=== PATIENT | female | born 1955 | race African-American/Black ===

== ENCOUNTER 2016-07-08 17:10 | Emergency (ER) | payer OTHER ==
[2016-07-08] MEDS ORDERED: predniSONE 20 MG TAB ONE (17:36)
== END 2016-07-08 17:39 | disposition home or self-care (01) ==
LOC: NAV ERS 17:10
DX: J30.9 Allergic rhinitis, unspecified (principal); K21.9 Gastro-esophageal reflux disease without esophagitis; I10 Essential (primary) hypertension; Z79.899 Other long term (current) drug therapy
CPT/HCPCS: 99283; J7506

== ENCOUNTER 2017-01-12 12:44 | Outpatient (CLI) | payer OTHER ==
--- NOTE | 2017-01-12 14:36 | RAD ---
LEFT KNEE 2 VIEWS: HISTORY: Knee pain. FINDINGS/IMPRESSION: There are moderate arthritic changes of the knee with tricompartment degenerative changes most marked in the medial compartment of the knee. There are some moderate osteoarthritic changes of the knee. POS: [facility]
== END 2017-01-12 12:45 | disposition home or self-care (01) ==
LOC: NAV RAD 12:44
PROVIDERS: ATTEND Family Medicine
DX: M25.561 Pain in right knee (principal); M17.11 Unilateral primary osteoarthritis, right knee

== ENCOUNTER 2018-04-17 14:26 | Outpatient (CLI) | payer OTHER ==
--- NOTE | 2018-04-17 16:17 | ULT ---
BILATERAL LOWER EXTREMITY VENOUS DUPLEX ULTRASOUND INCLUDING COLOR AND SPECTRAL DOPPLER IMAGIN04/17/18 HISTORY: Bilateral lower extremity edema for five months. Exam performed from groin to ankle including visualized greater saphenous, common femoral, superficia l femoral, profunda femoral, popliteal, trifurcation, and posterior tibial vein regions. Phasic flow is noted at all levels with normal compressibility and normal augmentation. No evidence for intralumi nal thrombus. IMPRESSION: No evidence for deep venous thrombosis. POS: [facility]
== END 2018-04-17 14:27 | disposition home or self-care (01) ==
LOC: NAV ULT 14:26
PROVIDERS: ATTEND Family Medicine
DX: R60.0 Localized edema (principal)
CPT/HCPCS: 93970

== ENCOUNTER 2018-06-17 18:49 | Emergency (ER) | payer OTHER ==
[2018-06-17] MEDS ORDERED: Lidocaine 1% (PF) 30 ML VIAL ONE (19:09)
--- NOTE | 2018-06-17 19:44 | CT ---
CT BRAIN: 06/17/18 HISTORY: Fall. Altered mental status. Noncontrast enhanced CT images of the brain obtained. Brain and bone windows obtained. CT images of the brain demonstrate the brain to be unremarkable. No evidence of intracranial masses, hemorrhages, strokes or contusions seen. Ventricles are of normal size. IMPRESSION: Unremarkable CT brain. POS: [facility]
--- NOTE | 2018-06-17 19:52 | RAD ---
THREE VIEWS RIGHT HAND: 06/17/18 HISTORY: Right hand injury and fall. AP, lateral and oblique views right hand obtained. Three views right hand demonstrates no evidence of right hand fractures, subluxations or bony lesions. IMPRESSION: Unremarkable three views right hand. POS: [facility]
--- NOTE | 2018-06-17 19:58 | CT ---
CT FACIAL BONES: 06/17/18 HISTORY: Fall, pain. Axial images are obtained with coronal and sagittal reconstructions. CT images facial bones demonstrate no evidence of fractures seen in the nasal bones. The sinuses are well aerated. Mandible and maxilla are intact. IMPRESSION: No evidence of facial bones fractures. POS: [facility]
--- NOTE | 2018-06-17 19:59 | CT ---
CT CERVICAL SPINE: 06/17/18 HISTORY: Fall. Pain. Right hand pain. Noncontrast enhanced CT images cervical spine obtained. The cervical spine is unremarkable. No evide nce of acute cervical spine fractures or bony lesions seen. IMPRESSION: No evidence of acute cervical spine fractures. POS: [facility]
[2018-06-17] MEDS ORDERED: Bacitracin Zinc 1 Packet ONE (20:18)
[2018-06-17] MEDS ORDERED: Adacel (T-DAP) 0.5 ML SYRINGE ONE (20:24)
[2018-06-17] MEDS ORDERED: traMADol HCl 50 MG TAB ONE (20:24)
== END 2018-06-17 20:50 | disposition home or self-care (01) ==
LOC: NAV ERS 18:49
DX: S61.411A Laceration without foreign body of right hand, initial encounter (principal); S09.93XA Unspecified injury of face, initial encounter; K21.9 Gastro-esophageal reflux disease without esophagitis; I10 Essential (primary) hypertension; Z79.891 Long term (current) use of opiate analgesic; Z79.899 Other long term (current) drug therapy; W01.0XXA Fall on same level from slipping, tripping and stumbling without subsequent striking against object, initial encounter
CPT/HCPCS: 12001; 70450; 70486; 72125; 90471; 90715; J2001

== ENCOUNTER 2018-09-12 15:42 | Emergency (ER) | payer OTHER | END 2018-09-12 16:45 | disposition home or self-care (01) | LOC: NAV ERS 15:42 | DX: M79.672 Pain in left foot (principal); M79.671 Pain in right foot; K21.9 Gastro-esophageal reflux disease without esophagitis; I10 Essential (primary) hypertension; Z79.891 Long term (current) use of opiate analgesic; Z79.899 Other long term (current) drug therapy | CPT/HCPCS: 99281 ==

== ENCOUNTER 2018-10-13 20:02 | Emergency (ER) | payer OTHER ==
[2018-10-13 20:44] LABS: #Eosinphils 0.1 thou/uL (0.0-0.7); #Lymphocytes 0.7 thou/uL (1.20-3.40); #Monocytes 0.3 thou/uL (0.11-0.59); #Neutrophils 4.8 thou/uL (1.40-6.50); %Basophils 0.5 % (0.0-1.0); %Eosinophils 1.3 % (0.0-10.0); %Lymphocytes 12.2 % (21.0-51.0); %Monocytes 5.6 % (0.0-10.0); %Neutrophils 80.5 % (42.0-75.0); Hemoglobin 12.2 g/dL (12.0-16.0); Mean Corpuscular HGB CONC 30.7 g/dL (32.0-36.0); Mean Corpuscular Volume 88.1 fL (78.0-98.0); Mean Platelet Volume 6.2 fL (7.4-10.4); Platelet Count 208 thou/uL (130-400); RBC Distribution Width 12.1 % (11.5-14.5); Red Blood Cell (RBC) Count 4.49 mill/uL (4.20-5.40)
[2018-10-13 20:59] LABS: ALT (SGPT) 30 U/L (8-55); AST (SGOT) 42 U/L (5-34); Albumin 4.3 g/dL (3.4-4.8); Alkaline Phosphatase 92 U/L (40-150); Anion Gap 18 mmol/L (10-20); BUN (Urea Nitrogen) 14 mg/dL (9.8-20.1); Bilirubin, Total 1.2 mg/dL (0.2-1.2); CK (CPK) 1293 U/L (29-168); Calc. Creatinine Clearance 0 mL/min (70-130); Carbon Dioxide 21 mmol/L (23-31); Chloride 105 mmol/L (98-107); Estimated GFR-MDRD 89; Globulin 2.9 g/dL (2.4-3.5); Glucose 99 mg/dL (80-115); Potassium 3.4 mmol/L (3.5-5.1); Protein, Total 7.2 g/dL (6.0-8.3); Sodium 141 mmol/L (136-145)
--- NOTE | 2018-10-13 21:20 | CT ---
CT BRAIN WITHOUT CONTRAST: 10/13/18 HISTORY: Headache. COMPARISON: Comparison made with exam of 06/17/18. No evidence of acute infarct, hemorrhage, midline shift or abnormal extra-axial fluid collections are seen. The ventricular size is normal and the basilar cisterns patent. The bony calvarium is intact. The visualized paranasal sinuses and mastoid air cells are well aerated. IMPRESSION: No CT evidence of acute intracranial process. POS: [facility]
--- NOTE | 2018-10-13 21:25 | RAD ---
PORTABLE CHEST ONE VIEW: 10/13/18 at 8:33 p.m. HISTORY: Feeling shaky, headache. FINDINGS: Comparison is made with exam of 02/25/16. The heart size is borderline. The lungs are well expanded without focal areas of consolidation, pneu mothoraces, or pleural effusions. There is no evidence of ranjeet pulmonary edema. There are postop kathleen nges in the spine. IMPRESSION: No acute process. POS: [facility]
[2018-10-13 21:44] LABS: Bilirubin Negative (Negative); Blood, Urine Moderate (Negative); Clarity Clear (Clear); Glucose, Urine (Dipstick) Negative (Negative); Leukocyte Negative (Negative); Nitrite Negative (Negative); Protein, Urine (Dipstick) Negative (Neg-Trace); Urobilinogen 0.2 mg/dL (Less than 2)
[2018-10-13 21:53] LABS: Bacteria/HPF None Seen HPF (None Seen); Squamous Epithelial 0-3 HPF (0-3); WBC/HPF 0-3 HPF (0-3)
== END 2018-10-13 22:43 | disposition home or self-care (01) ==
LOC: NAV ERS 20:02
DX: R53.1 Weakness (principal); M25.572 Pain in left ankle and joints of left foot; M25.571 Pain in right ankle and joints of right foot; M79.89 Other specified soft tissue disorders; M54.5 Low back pain; G89.29 Other chronic pain; I10 Essential (primary) hypertension; K21.9 Gastro-esophageal reflux disease without esophagitis; Z79.899 Other long term (current) drug therapy; W18.30XA Fall on same level, unspecified, initial encounter
CPT/HCPCS: 36416; 51701; 70450; 71045; 80053; 81003; 81015; 82550; 83735; 85025

== ENCOUNTER 2019-04-27 14:49 | Emergency (ER) | payer OTHER ==
[2019-04-27 16:02] LABS: #Eosinphils 0.1 thou/uL (0.0-0.7); #Lymphocytes 0.9 thou/uL (1.20-3.40); #Monocytes 0.3 thou/uL (0.11-0.59); #Neutrophils 3.2 thou/uL (1.40-6.50); %Basophils 0.4 % (0.0-1.0); %Eosinophils 1.5 % (0.0-10.0); %Lymphocytes 20.4 % (21.0-51.0); %Monocytes 7.4 % (0.0-10.0); %Neutrophils 70.3 % (42.0-75.0); Mean Corpuscular HGB CONC 31.2 g/dL (32.0-36.0); Mean Corpuscular Hemoglobin 28.2 pg (27.0-31.0); Mean Corpuscular Volume 90.3 fL (78.0-98.0); Mean Platelet Volume 6.8 fL (7.4-10.4); Platelet Count 210 thou/uL (130-400); RBC Distribution Width 12.7 % (11.5-14.5); White Blood Cell (WBC) Count 4.5 thou/uL (4.8-10.8)
[2019-04-27 16:23] LABS: ALT (SGPT) 10 U/L (8-55); AST (SGOT) 26 U/L (5-34); Albumin 4.4 g/dL (3.4-4.8); Alkaline Phosphatase 89 U/L (40-110); Anion Gap 17 mmol/L (10-20); BUN (Urea Nitrogen) 15 mg/dL (9.8-20.1); Bilirubin, Total 0.5 mg/dL (0.2-1.2); Calc. Creatinine Clearance 0 mL/min (70-130); Calcium 9.3 mg/dL (7.8-10.44); Carbon Dioxide 23 mmol/L (23-31); Chloride 101 mmol/L (98-107); Estimated GFR-MDRD 76; Glucose 91 mg/dL (80-115); Magnesium 1.9 mg/dL (1.6-2.6); Potassium 3.4 mmol/L (3.5-5.1); Protein, Total 7.4 g/dL (6.0-8.3); Sodium 138 mmol/L (136-145)
--- NOTE | 2019-04-27 16:40 | RAD ---
EXAM: CHEST ONE VIEW HISTORY: Cough and weakness. COMPARISON: 10/13/2018 FINDINGS: The cardiac silhouette and pulmonary vasculature is within normal limits. The lungs are clear. Postsu rgical changes lower thoracic spine are partially imaged. Vascular calcification are seen in the thoracic aorta. Chest is stable compared to prior exam. IMPRESSION: No acute cardiopulmonary process.
[2019-04-27 17:39] LABS: Bilirubin Negative (Negative); Blood, Urine Moderate (Negative); Clarity SL HAZY (Clear); Glucose, Urine (Dipstick) Negative (Negative); Leukocyte Moderate (Negative); Nitrite Negative (Negative); Protein, Urine (Dipstick) Negative (Neg-Trace); Squamous Epithelial 0-3 HPF (0-3); Urobilinogen 0.2 mg/dL (Less than 2)
[2019-04-27 17:40] LABS: Bacteria/HPF Rare-Few HPF (None Seen)
[2019-04-27] MEDS ORDERED: Potassium Chloride 20 MEQ TAB ONE (18:13)
[2019-04-27] MEDS ORDERED: Cephalexin 250 MG CAP ONE (18:13)
== END 2019-04-27 18:56 | disposition home or self-care (01) ==
LOC: NAV ERS 14:49
DX: N39.0 Urinary tract infection, site not specified (principal); E87.6 Hypokalemia; R11.0 Nausea; K21.9 Gastro-esophageal reflux disease without esophagitis; I10 Essential (primary) hypertension; Z79.899 Other long term (current) drug therapy
CPT/HCPCS: 71045; 80053; 81003; 81015; 83735; 83880; 84484; 85025; 87086; 93005; 94760

== ENCOUNTER 2020-04-16 10:36 | Emergency (ER) | payer MEDICARE, OTHER ==
[2020-04-16] MEDS ORDERED: Hydrochlorothiazide 25 MG TAB ONE (11:22)
[2020-04-16] MEDS ORDERED: Losartan Potassium 50 MG TAB ONE (11:22)
[2020-04-16 11:45] LABS: #Eosinphils 0.1 thou/uL (0.0-0.7); #Monocytes 0.4 thou/uL (0.11-0.59); #Neutrophils 3.7 thou/uL (1.40-6.50); %Basophils 0.8 % (0.0-1.0); %Lymphocytes 18.7 % (21.0-51.0); %Monocytes 7.4 % (0.0-10.0); %Neutrophils 72.1 % (42.0-75.0); Hemoglobin 12.1 g/dL (12.0-16.0); Mean Corpuscular HGB CONC 32.2 g/dL (32.0-36.0); Mean Corpuscular Hemoglobin 29.1 pg (27.0-31.0); Mean Corpuscular Volume 90.4 fL (78.0-98.0); Platelet Count 224 thou/uL (130-400); RBC Distribution Width 12.7 % (11.5-14.5); Red Blood Cell (RBC) Count 4.14 mill/uL (4.20-5.40); White Blood Cell (WBC) Count 5.2 thou/uL (4.8-10.8)
[2020-04-16] MEDS ORDERED: traMADol HCl 50 MG TAB ONE (11:47)
[2020-04-16 11:58] LABS: ALT (SGPT) 17 U/L (8-55); AST (SGOT) 21 U/L (5-34); Albumin 4.2 g/dL (3.4-4.8); Alkaline Phosphatase 70 U/L (40-110); Anion Gap 16 mmol/L (10-20); BUN (Urea Nitrogen) 11 mg/dL (9.8-20.1); Bilirubin, Total 0.6 mg/dL (0.2-1.2); Calc. Creatinine Clearance 0 mL/min (70-130); Calcium 9.7 mg/dL (7.8-10.44); Carbon Dioxide 23 mmol/L (23-31); Globulin 2.8 g/dL (2.4-3.5); Glucose 94 mg/dL (80-115); Potassium 4.4 mmol/L (3.5-5.1); Sodium 142 mmol/L (136-145)
[2020-04-16 12:01] LABS: Chloride 107 mmol/L (98-107)
[2020-04-16 13:25] LABS: Bilirubin Negative (Negative); Blood, Urine Moderate (Negative); Clarity Clear (Clear); Glucose, Urine (Dipstick) Negative (Negative); Ketone, Urine Negative (Negative); Leukocyte Negative (Negative); Nitrite Negative (Negative); Protein, Urine (Dipstick) Negative (Neg-Trace); Specific Gravity, Urine 1.025 (1.005-1.030); Urobilinogen 0.2 mg/dL (Less than 2)
[2020-04-16 13:37] LABS: Squamous Epithelial 0-3 HPF (0-3); WBC/HPF 0-3 HPF (0-3)
== END 2020-04-16 16:50 | disposition short-term general hospital (02) ==
LOC: NAV ERS 10:36
DX: M79.605 Pain in left leg (principal); R79.89 Other specified abnormal findings of blood chemistry; R26.2 Difficulty in walking, not elsewhere classified; K21.9 Gastro-esophageal reflux disease without esophagitis; I10 Essential (primary) hypertension; Z79.899 Other long term (current) drug therapy
CPT/HCPCS: 51701; 80053; 81003; 81015; 85025; 85379

== ENCOUNTER 2020-05-22 14:56 | Emergency (ER) | payer MEDICARE, OTHER ==
[2020-05-22] MEDS ORDERED: Furosemide 40 MG/4 ML VIAL ONE (15:43)
[2020-05-22] MEDS ORDERED: Furosemide 40 MG TAB ONE (16:06)
== END 2020-05-22 16:45 | disposition home or self-care (01) ==
LOC: NAV ERS 14:56
DX: M79.2 Neuralgia and neuritis, unspecified (principal); R60.0 Localized edema; K21.9 Gastro-esophageal reflux disease without esophagitis; I10 Essential (primary) hypertension; Z79.899 Other long term (current) drug therapy
CPT/HCPCS: 99283; J1940

== ENCOUNTER 2020-06-20 19:49 | Inpatient (IN) | payer MEDICARE, OTHER ==
[2020-06-20 20:50] LABS: Bilirubin Negative (Negative); Blood, Urine Small (Negative); Glucose, Urine (Dipstick) Negative (Negative); Ketone, Urine Negative (Negative); Leukocyte Moderate (Negative); Nitrite Negative (Negative); Protein, Urine (Dipstick) Negative (Neg-Trace); Urobilinogen 0.2 mg/dL (Less than 2)
[2020-06-20 20:52] LABS: #Eosinphils 0.1 thou/uL (0.0-0.7); #Monocytes 0.4 thou/uL (0.11-0.59); %Basophils 0.3 % (0.0-1.0); %Eosinophils 1.9 % (0.0-10.0); %Lymphocytes 17.9 % (21.0-51.0); %Monocytes 6.7 % (0.0-10.0); %Neutrophils 73.2 % (42.0-75.0); Hemoglobin 12.1 g/dL (12.0-16.0); Mean Corpuscular HGB CONC 29.1 g/dL (32.0-36.0); Mean Corpuscular Hemoglobin 27.7 pg (27.0-31.0); Mean Corpuscular Volume 95.5 fL (78.0-98.0); Mean Platelet Volume 7.3 fL (7.4-10.4); Platelet Count 212 thou/uL (130-400); RBC Distribution Width 12.9 % (11.5-14.5); Red Blood Cell (RBC) Count 4.35 mill/uL (4.20-5.40); White Blood Cell (WBC) Count 5.5 thou/uL (4.8-10.8)
[2020-06-20 20:53] LABS: Clarity SL HAZY (Clear)
[2020-06-20 21:02] LABS: Anion Gap 17 mmol/L (10-20); BUN (Urea Nitrogen) 18 mg/dL (9.8-20.1); Calc. Creatinine Clearance 0 mL/min (70-130); Calcium 9.3 mg/dL (7.8-10.44); Carbon Dioxide 21 mmol/L (23-31); Chloride 105 mmol/L (98-107); Glucose 91 mg/dL (80-115); Potassium 3.9 mmol/L (3.5-5.1); Sodium 139 mmol/L (136-145)
[2020-06-20 21:02] LABS: RBC/HPF 0-3 HPF (0-3); Squamous Epithelial 0-3 HPF (0-3); Trichomonas/HPF 2+ HPF (None Seen); WBC/HPF Greater Than 50 HPF (0-3)
[2020-06-20] MEDS ORDERED: Sodium Chloride 0.9% 100 ML ONE (22:20)
[2020-06-20] MEDS ORDERED: cefTRIAXone\\ROCEPHIN 1 GM VIAL ONE (22:20)
[2020-06-20] MEDS ORDERED: metroNIDAZOLE 500 MG TAB ONE (22:20)
[2020-06-20] MEDS ORDERED: traMADol HCl 50 MG TAB ONE (22:35)
[2020-06-20] MEDS ORDERED: traMADol HCl 50 MG TAB PO PRN (23:29)
[2020-06-20] MEDS ORDERED: Methocarbamol 500 MG TAB PO PRN (23:30)
[2020-06-21 05:38] LABS: #Eosinphils 0.1 thou/uL (0.0-0.7); #Lymphocytes 1.2 thou/uL (1.20-3.40); #Monocytes 0.4 thou/uL (0.11-0.59); #Neutrophils 3.3 thou/uL (1.40-6.50); %Basophils 0.3 % (0.0-1.0); %Eosinophils 2.4 % (0.0-10.0); %Lymphocytes 23.5 % (21.0-51.0); %Monocytes 7.5 % (0.0-10.0); %Neutrophils 66.2 % (42.0-75.0); Hemoglobin 11.1 g/dL (12.0-16.0); Mean Corpuscular Hemoglobin 27.1 pg (27.0-31.0); Mean Corpuscular Volume 93.7 fL (78.0-98.0); Mean Platelet Volume 7.3 fL (7.4-10.4); Platelet Count 232 thou/uL (130-400); RBC Distribution Width 12.7 % (11.5-14.5); Red Blood Cell (RBC) Count 4.09 mill/uL (4.20-5.40)
[2020-06-21 05:45] LABS: Anion Gap 12 mmol/L (10-20); BUN (Urea Nitrogen) 14 mg/dL (9.8-20.1); Calc. Creatinine Clearance 99 mL/min (70-130); Calcium 8.7 mg/dL (7.8-10.44); Carbon Dioxide 24 mmol/L (23-31); Chloride 106 mmol/L (98-107); Glucose 94 mg/dL (80-115); Potassium 3.4 mmol/L (3.5-5.1); Sodium 139 mmol/L (136-145)
[2020-06-21 06:24] LABS: RBC Morphology Normal
[2020-06-21] MEDS ORDERED: metroNIDAZOLE 500 MG TAB PO SCH (09:00)
[2020-06-21] MEDS ORDERED: Potassium Chloride 20 MEQ TAB PO SCH (09:15)
[2020-06-21] MEDS ORDERED: Carbidopa/Levodopa 10-100 mg Tablet PO SCH (09:30)
[2020-06-21] MEDS ORDERED: Nitrofurantoin Monohyd/M-Cryst 100 MG CAP PO SCH (09:30)
[2020-06-21] MEDS: metroNIDAZOLE 500 MG TAB PO SCH ×2 (09:38→21:05)
[2020-06-21 21:01] LABS: SARS-CoV-2 PCR by NAA Not Detected (NotDetected)
[2020-06-21] MEDS: Carbidopa/Levodopa 10-100 mg Tablet PO SCH (21:05)
[2020-06-21] MEDS: Nitrofurantoin Monohyd/M-Cryst 100 MG CAP PO SCH (21:06)
[2020-06-21] MEDS ORDERED: cefTRIAXone\\ROCEPHIN 1 GM in Sodium Chloride 0.9% 100 ML IVPB SCH (23:00)
[2020-06-22 00:07] VITALS: BMI 34.6
[2020-06-22 05:50] LABS: #Eosinphils 0.2 thou/uL (0.0-0.7); #Monocytes 0.3 thou/uL (0.11-0.59); #Neutrophils 2.9 thou/uL (1.40-6.50); %Basophils 0.5 % (0.0-1.0); %Eosinophils 3.9 % (0.0-10.0); %Lymphocytes 21.9 % (21.0-51.0); %Monocytes 7.6 % (0.0-10.0); %Neutrophils 66.2 % (42.0-75.0); Hemoglobin 11.9 g/dL (12.0-16.0); Mean Corpuscular HGB CONC 28.8 g/dL (32.0-36.0); Mean Corpuscular Volume 93.9 fL (78.0-98.0); Mean Platelet Volume 7.7 fL (7.4-10.4); Platelet Count 223 thou/uL (130-400); RBC Distribution Width 12.7 % (11.5-14.5); White Blood Cell (WBC) Count 4.4 thou/uL (4.8-10.8)
[2020-06-22 06:03] LABS: Anion Gap 13 mmol/L (10-20); BUN (Urea Nitrogen) 11 mg/dL (9.8-20.1); Calc. Creatinine Clearance 102 mL/min (70-130); Calcium 9.2 mg/dL (7.8-10.44); Carbon Dioxide 23 mmol/L (23-31); Chloride 107 mmol/L (98-107); Glucose 92 mg/dL (80-115); Potassium 3.7 mmol/L (3.5-5.1); Sodium 139 mmol/L (136-145)
[2020-06-22] MEDS: Carbidopa/Levodopa 10-100 mg Tablet PO SCH ×2 (09:18→21:01)
[2020-06-22] MEDS: Nitrofurantoin Monohyd/M-Cryst 100 MG CAP PO SCH ×2 (09:18→21:00)
[2020-06-22] MEDS: Methocarbamol 500 MG TAB PO PRN ×3 (09:26→20:59)
[2020-06-22] MEDS: traMADol HCl 50 MG TAB PO PRN (13:40)
[2020-06-23] MEDS: traMADol HCl 50 MG TAB PO PRN ×2 (01:17→16:10)
[2020-06-23] MEDS: Carbidopa/Levodopa 10-100 mg Tablet PO SCH ×2 (09:34→21:16)
[2020-06-23] MEDS: Nitrofurantoin Monohyd/M-Cryst 100 MG CAP PO SCH ×2 (09:34→21:16)
[2020-06-23] MEDS: Methocarbamol 500 MG TAB PO PRN (21:16)
[2020-06-24] MEDS: Nitrofurantoin Monohyd/M-Cryst 100 MG CAP PO SCH ×2 (08:38→21:16)
[2020-06-24] MEDS: Carbidopa/Levodopa 10-100 mg Tablet PO SCH ×2 (08:39→21:16)
[2020-06-24] MEDS: Methocarbamol 500 MG TAB PO PRN ×2 (10:20→21:16)
[2020-06-25] MEDS: Carbidopa/Levodopa 10-100 mg Tablet PO SCH (09:31)
[2020-06-25] MEDS: Nitrofurantoin Monohyd/M-Cryst 100 MG CAP PO SCH (09:31)
[2020-06-25] MEDS: traMADol HCl 50 MG TAB PO PRN (09:34)
[2020-06-25] MEDS ORDERED: Milk Of Magnesia 30 ML UDCUP PO PRN (14:46)
[2020-06-25 15:05] VITALS: BP 110/75; TEMP 97.5
== END 2020-06-25 18:20 | disposition home health service (06) | DRG 690 ==
LOC: NAV ERS 19:49 → UNDOADMIN 23:04 → NAV ACUTE 23:04
PROVIDERS: ADMIT Internal Medicine; ATTEND Internal Medicine
DX: N39.0 Urinary tract infection, site not specified (principal); R29.6 Repeated falls; R53.1 Weakness; M25.569 Pain in unspecified knee; A59.03 Trichomonal cystitis and urethritis; G89.29 Other chronic pain; I10 Essential (primary) hypertension; G20 Parkinson's disease; R53.81 Other malaise; M62.838 Other muscle spasm; M40.209 Unspecified kyphosis, site unspecified; K21.9 Gastro-esophageal reflux disease without esophagitis; D64.9 Anemia, unspecified; Z90.49 Acquired absence of other specified parts of digestive tract; Z98.51 Tubal ligation status; Z83.3 Family history of diabetes mellitus; Z80.9 Family history of malignant neoplasm, unspecified; Z88.5 Allergy status to narcotic agent
CPT/HCPCS: 36416; 72100; 80048; 81003; 81015; 83735; 85025; 87086; 87635; 96365; J0696; J3490; U0003; U0005

== ENCOUNTER 2021-01-03 13:59 | Emergency (ER) | payer MEDICARE, OTHER ==
[2021-01-03] MEDS ORDERED: Acetaminophen 500 MG TAB ONE (14:47)
[2021-01-03 15:18] LABS: #Basophils 0.1 thou/uL (0.0-0.2); #Eosinphils 0.1 thou/uL (0.0-0.7); #Lymphocytes 1.2 thou/uL (1.20-3.40); #Monocytes 0.2 thou/uL (0.11-0.59); #Neutrophils 3.5 thou/uL (1.40-6.50); %Basophils 1.4 % (0.0-1.0); %Eosinophils 1.8 % (0.0-10.0); %Lymphocytes 23.3 % (21.0-51.0); %Monocytes 4.5 % (0.0-10.0); %Neutrophils 68.9 % (42.0-75.0); Hemoglobin 12.2 g/dL (12.0-16.0); Mean Corpuscular HGB CONC 30.9 g/dL (32.0-36.0); Mean Corpuscular Hemoglobin 28.4 pg (27.0-31.0); Mean Platelet Volume 6.9 fL (7.4-10.4); Platelet Count 219 thou/uL (130-400); RBC Distribution Width 12.4 % (11.5-14.5); Red Blood Cell (RBC) Count 4.29 mill/uL (4.20-5.40); White Blood Cell (WBC) Count 5.1 thou/uL (4.8-10.8)
[2021-01-03 15:32] LABS: ALT (SGPT) 19 U/L (8-55); AST (SGOT) 21 U/L (5-34); Alkaline Phosphatase 64 U/L (40-110); Anion Gap 11 mmol/L (10-20); BUN (Urea Nitrogen) 10 mg/dL (9.8-20.1); Bilirubin, Total 0.7 mg/dL (0.2-1.2); Calc. Creatinine Clearance 0 mL/min (70-130); Calcium 9.3 mg/dL (7.8-10.44); Carbon Dioxide 22 mmol/L (23-31); Chloride 108 mmol/L (98-107); Globulin 3.3 g/dL (2.4-3.5); Glucose 90 mg/dL (80-115); Potassium 3.5 mmol/L (3.5-5.1); Protein, Total 7.3 g/dL (5.8-8.1); Sodium 137 mmol/L (136-145)
== END 2021-01-03 17:43 | disposition home or self-care (01) ==
LOC: NAV ERS 13:59
DX: I10 Essential (primary) hypertension (principal); R51.9 Headache, unspecified; K21.9 Gastro-esophageal reflux disease without esophagitis; G20 Parkinson's disease; Z79.899 Other long term (current) drug therapy
CPT/HCPCS: 70450; 71045; 80053; 83880; 84484; 85025; 93005

== ENCOUNTER 2021-07-05 16:46 | Emergency (ER) | payer MEDICARE, OTHER ==
[2021-07-05] MEDS ORDERED: Sodium Chloride 0.9% 1,000 ML ONE (17:46)
[2021-07-05 18:20] LABS: ALT (SGPT) 18 U/L (8-55); AST (SGOT) 18 U/L (5-34); Alkaline Phosphatase 83 U/L (40-110); Anion Gap 20 mmol/L (10-20); BUN (Urea Nitrogen) 14 mg/dL (9.8-20.1); Bilirubin, Total 0.4 mg/dL (0.2-1.2); CK (CPK) 335 U/L (29-168); Calc. Creatinine Clearance 0 mL/min (70-130); Calcium 9.3 mg/dL (7.8-10.44); Carbon Dioxide 19 mmol/L (23-31); Chloride 108 mmol/L (98-107); Globulin 3.1 g/dL (2.4-3.5); Glucose 85 mg/dL (80-115); Magnesium 1.9 mg/dL (1.6-2.6); Potassium 3.8 mmol/L (3.5-5.1); Protein, Total 7.1 g/dL (5.8-8.1); Sodium 143 mmol/L (136-145)
[2021-07-05 18:21] LABS: #Basophils 0.1 thou/uL (0.0-0.2); #Eosinphils 0.1 thou/uL (0.0-0.7); #Lymphocytes 1.1 thou/uL (1.20-3.40); #Monocytes 0.3 thou/uL (0.11-0.59); #Neutrophils 3.3 thou/uL (1.40-6.50); %Basophils 1.1 % (0.0-1.0); %Eosinophils 1.7 % (0.0-10.0); %Lymphocytes 23.3 % (21.0-51.0); %Monocytes 5.9 % (0.0-10.0); Hemoglobin 12.4 g/dL (12.0-16.0); Mean Corpuscular HGB CONC 30.1 g/dL (32.0-36.0); Mean Corpuscular Hemoglobin 28.4 pg (27.0-31.0); Mean Corpuscular Volume 94.4 fL (78.0-98.0); Mean Platelet Volume 7.4 fL (7.4-10.4); Platelet Count 187 thou/uL (130-400); RBC Distribution Width 13.2 % (11.5-14.5); Red Blood Cell (RBC) Count 4.36 mill/uL (4.20-5.40); White Blood Cell (WBC) Count 4.9 thou/uL (4.8-10.8)
[2021-07-05 18:22] LABS: Clarity SL (Clear)
[2021-07-05 18:23] LABS: Bilirubin Negative (Negative); Blood, Urine Large (Negative); Glucose, Urine (Dipstick) Negative (Negative); Ketone, Urine Negative (Negative); Leukocyte Negative (Negative); Nitrite Negative (Negative); Protein, Urine (Dipstick) 30 mg/dL (Neg-Trace); Specific Gravity, Urine 1.027 (1.002-1.036); Urobilinogen 0.2 mg/dL (Less than 2)
[2021-07-05 18:33] LABS: Squamous Epithelial 0-3 HPF (0-3)
[2021-07-05 18:38] LABS: Bacteria/HPF 3+ HPF (None Seen)
[2021-07-05] MEDS ORDERED: Nitrofurantoin Macrocrystal 50 MG CAP ONE ×2 (19:26→19:29)
== END 2021-07-05 21:57 ==
LOC: NAV ERS 16:46
DX: N39.0 Urinary tract infection, site not specified (principal); I10 Essential (primary) hypertension; K21.9 Gastro-esophageal reflux disease without esophagitis; Z79.899 Other long term (current) drug therapy
CPT/HCPCS: 51701; 80053; 81003; 81015; 82550; 83735; 84443; 85025; 87077; 87086; 87186; 93005; J7050

== ENCOUNTER 2021-11-13 15:40 | Inpatient (IN) | payer MEDICARE, MEDICAID ==
[2021-11-13] MEDS ORDERED: Acetaminophen 500 MG TAB PO PRN (16:36)
[2021-11-13] MEDS ORDERED: Bisacodyl 5 MG TAB PO PRN (16:44)
[2021-11-13] MEDS: Gabapentin 300 MG CAP PO SCH (21:04)
[2021-11-14 06:45] LABS: #Eosinphils 0.2 thou/uL (0.0-0.7); #Lymphocytes 1.5 thou/uL (1.20-3.40); #Monocytes 0.3 thou/uL (0.11-0.59); #Neutrophils 3.7 thou/uL (1.40-6.50); %Basophils 0.6 % (0.0-1.0); %Eosinophils 3.2 % (0.0-10.0); %Lymphocytes 27.1 % (21.0-51.0); %Monocytes 4.4 % (0.0-10.0); %Neutrophils 64.8 % (42.0-75.0); Hemoglobin 13.6 g/dL (12.0-16.0); Mean Corpuscular HGB CONC 28.8 g/dL (32.0-36.0); Mean Corpuscular Hemoglobin 27.9 pg (27.0-31.0); Mean Corpuscular Volume 96.8 fL (78.0-98.0); Mean Platelet Volume 7.9 fL (7.4-10.4); Platelet Count 228 thou/uL (130-400); RBC Distribution Width 13.7 % (11.5-14.5); Red Blood Cell (RBC) Count 4.86 mill/uL (4.20-5.40); White Blood Cell (WBC) Count 5.7 thou/uL (4.8-10.8)
[2021-11-14 07:03] LABS: ALT (SGPT) 14 U/L (8-55); AST (SGOT) 16 U/L (5-34); Albumin 4.1 g/dL (3.4-4.8); Alkaline Phosphatase 69 U/L (40-110); Anion Gap 15 mmol/L (10-20); BUN (Urea Nitrogen) 18 mg/dL (9.8-20.1); Bilirubin, Total 0.7 mg/dL (0.2-1.2); Calc. Creatinine Clearance 94 mL/min (70-130); Calcium 9.3 mg/dL (7.8-10.44); Carbon Dioxide 20 mmol/L (23-31); Chloride 106 mmol/L (98-107); Estimated GFR 75; Globulin 2.9 g/dL (2.4-3.5); Glucose 91 mg/dL (80-115); Potassium 4.1 mmol/L (3.5-5.1); Sodium 137 mmol/L (136-145)
[2021-11-14] MEDS: Enoxaparin Sodium 40 MG/0.4 ML SYRINGE SC SCH (07:53)
[2021-11-14] MEDS: Gabapentin 300 MG CAP PO SCH ×2 (07:54→21:29)
[2021-11-14] MEDS: Potassium Chloride 20 MEQ TAB PO SCH (07:54)
[2021-11-14] MEDS: Carbidopa/Levodopa 10-100 mg Tablet PO SCH (07:54)
[2021-11-14] MEDS ORDERED: Lisinopril 5 MG TAB PO SCH ×2 (09:00→10:15)
[2021-11-14] MEDS ORDERED: Furosemide 20 MG TAB PO SCH (10:15)
[2021-11-14] MEDS: Acetaminophen 325 MG TAB PO PRN (14:07)
[2021-11-14] MEDS: Senokot S 8.6-50 MG TAB PO PRN (21:48)
[2021-11-15] MEDS: Gabapentin 300 MG CAP PO SCH ×2 (09:09→20:35)
[2021-11-15] MEDS: Lisinopril 5 MG TAB PO SCH (09:10)
[2021-11-15] MEDS: Enoxaparin Sodium 40 MG/0.4 ML SYRINGE SC SCH (09:10)
[2021-11-15] MEDS: Potassium Chloride 20 MEQ TAB PO SCH (09:10)
[2021-11-15] MEDS: Carbidopa/Levodopa 10-100 mg Tablet PO SCH (09:11)
[2021-11-15] MEDS: Senokot S 8.6-50 MG TAB PO PRN (20:35)
[2021-11-16] MEDS: Enoxaparin Sodium 40 MG/0.4 ML SYRINGE SC SCH (08:41)
[2021-11-16] MEDS: Carbidopa/Levodopa 10-100 mg Tablet PO SCH (08:42)
[2021-11-16] MEDS: Potassium Chloride 20 MEQ TAB PO SCH (08:43)
[2021-11-16] MEDS: Gabapentin 300 MG CAP PO SCH ×2 (08:43→21:57)
[2021-11-16] MEDS: Lisinopril 5 MG TAB PO SCH ×2 (08:43→08:45)
[2021-11-16] MEDS: Acetaminophen 325 MG TAB PO PRN (18:03)
[2021-11-17] MEDS ORDERED: Tetrahydrozoline 0.05% OPTH 15 ML BOT EA EYE PRN (07:32)
[2021-11-17] MEDS: Gabapentin 300 MG CAP PO SCH (09:14)
[2021-11-17] MEDS: Lisinopril 5 MG TAB PO SCH (09:16)
[2021-11-17] MEDS: Enoxaparin Sodium 40 MG/0.4 ML SYRINGE SC SCH (09:18)
[2021-11-17] MEDS: Carbidopa/Levodopa 10-100 mg Tablet PO SCH (09:21)
[2021-11-17] MEDS: Potassium Chloride 20 MEQ TAB PO SCH (09:57)
[2021-11-17] MEDS ORDERED: Gabapentin 300 MG CAP PO SCH (21:00)
[2021-11-17] MEDS: Methocarbamol 500 MG TAB PO PRN (23:00)
[2021-11-17] MEDS ORDERED: Gabapentin 100 MG CAP PO SCH (23:00)
[2021-11-17] MEDS: Acetaminophen 325 MG TAB PO PRN (23:04)
[2021-11-18] MEDS ORDERED: Sodium Chloride 0.9% 1,000 ML IV SCH (00:30)
[2021-11-18] MEDS: Enoxaparin Sodium 40 MG/0.4 ML SYRINGE SC SCH ×2 (08:22→08:37)
[2021-11-18] MEDS: Gabapentin 100 MG CAP PO SCH ×2 (08:23→20:43)
[2021-11-18] MEDS: Carbidopa/Levodopa 10-100 mg Tablet PO SCH ×2 (08:24→08:32)
[2021-11-18] MEDS: Lisinopril 5 MG TAB PO SCH ×2 (08:25→08:35)
[2021-11-18] MEDS: Acetaminophen 325 MG TAB PO PRN (08:27)
[2021-11-18] MEDS: Methocarbamol 500 MG TAB PO PRN (08:27)
[2021-11-18] MEDS: Potassium Chloride 20 MEQ TAB PO SCH (08:28)
[2021-11-19] MEDS: Enoxaparin Sodium 40 MG/0.4 ML SYRINGE SC SCH (08:09)
[2021-11-19] MEDS: Carbidopa/Levodopa 10-100 mg Tablet PO SCH (08:10)
[2021-11-19] MEDS: Potassium Chloride 20 MEQ TAB PO SCH (08:10)
[2021-11-19] MEDS: Lisinopril 5 MG TAB PO SCH (08:10)
[2021-11-19] MEDS: Amantadine HCl 100 mg Capsule PO SCH (08:10)
[2021-11-19] MEDS: Gabapentin 100 MG CAP PO SCH ×2 (08:11→20:18)
[2021-11-19] MEDS: Acetaminophen 325 MG TAB PO PRN ×2 (09:49→17:07)
[2021-11-19] MEDS: Methocarbamol 500 MG TAB PO PRN (09:52)
[2021-11-20] MEDS: Gabapentin 100 MG CAP PO SCH (09:35)
[2021-11-20] MEDS: Enoxaparin Sodium 40 MG/0.4 ML SYRINGE SC SCH ×2 (09:35→09:40)
[2021-11-20] MEDS: Amantadine HCl 100 mg Capsule PO SCH (09:35)
[2021-11-20] MEDS: Carbidopa/Levodopa 10-100 mg Tablet PO SCH (09:36)
[2021-11-20] MEDS: Lisinopril 5 MG TAB PO SCH (09:36)
[2021-11-20] MEDS: Potassium Chloride 20 MEQ TAB PO SCH (09:37)
[2021-11-20] MEDS: Acetaminophen 325 MG TAB PO PRN (18:16)
[2021-11-20] MEDS: Gabapentin 300 MG CAP PO SCH (21:28)
[2021-11-21] MEDS: Gabapentin 300 MG CAP PO SCH ×2 (07:59→20:48)
[2021-11-21] MEDS: Potassium Chloride 20 MEQ TAB PO SCH (08:00)
[2021-11-21] MEDS: Lisinopril 5 MG TAB PO SCH (08:01)
[2021-11-21] MEDS: Carbidopa/Levodopa 10-100 mg Tablet PO SCH (08:01)
[2021-11-21] MEDS: Amantadine HCl 100 mg Capsule PO SCH (08:02)
[2021-11-21] MEDS: Enoxaparin Sodium 40 MG/0.4 ML SYRINGE SC SCH (08:45)
[2021-11-21] MEDS ORDERED: Furosemide 20 MG TAB PO SCH (09:00)
[2021-11-21] MEDS: Ketotifen Fumarate 0.025% Ophth Soln 5 ml Bottle EA EYE PRN (11:40)
[2021-11-21] MEDS: Acetaminophen 325 MG TAB PO PRN ×2 (17:19→23:17)
[2021-11-21] MEDS: Methocarbamol 500 MG TAB PO PRN (23:18)
[2021-11-22 06:15] LABS: #Basophils 0.1 thou/uL (0.0-0.2); #Eosinphils 0.2 thou/uL (0.0-0.7); #Lymphocytes 1.5 thou/uL (1.20-3.40); #Monocytes 0.4 thou/uL (0.11-0.59); #Neutrophils 2.6 thou/uL (1.40-6.50); %Basophils 1.1 % (0.0-1.0); %Eosinophils 4.9 % (0.0-10.0); %Lymphocytes 31.6 % (21.0-51.0); %Monocytes 8.1 % (0.0-10.0); %Neutrophils 54.4 % (42.0-75.0); Hemoglobin 12.4 g/dL (12.0-16.0); Mean Corpuscular HGB CONC 29.8 g/dL (32.0-36.0); Mean Corpuscular Hemoglobin 28.2 pg (27.0-31.0); Mean Corpuscular Volume 94.6 fL (78.0-98.0); Mean Platelet Volume 8.1 fL (7.4-10.4); Platelet Count 214 thou/uL (130-400); RBC Distribution Width 13.1 % (11.5-14.5); Red Blood Cell (RBC) Count 4.42 mill/uL (4.20-5.40); White Blood Cell (WBC) Count 4.8 thou/uL (4.8-10.8)
[2021-11-22 06:19] LABS: Anion Gap 16 mmol/L (10-20); BUN (Urea Nitrogen) 17 mg/dL (9.8-20.1); Calc. Creatinine Clearance 93 mL/min (70-130); Calcium 9.3 mg/dL (7.8-10.44); Carbon Dioxide 20 mmol/L (23-31); Chloride 107 mmol/L (98-107); Estimated GFR 75; Glucose 92 mg/dL (80-115); Sodium 139 mmol/L (136-145)
[2021-11-22] MEDS: Enoxaparin Sodium 40 MG/0.4 ML SYRINGE SC SCH (07:44)
[2021-11-22] MEDS: Amantadine HCl 100 mg Capsule PO SCH (07:46)
[2021-11-22] MEDS: Gabapentin 300 MG CAP PO SCH ×2 (07:46→21:07)
[2021-11-22] MEDS: Ketotifen Fumarate 0.025% Ophth Soln 5 ml Bottle EA EYE PRN ×2 (07:48→21:08)
[2021-11-22] MEDS: Carbidopa/Levodopa 10-100 mg Tablet PO SCH (07:49)
[2021-11-22] MEDS ORDERED: Potassium Chloride 20 MEQ TAB PO SCH (08:00)
[2021-11-22] MEDS: Lisinopril 5 MG TAB PO SCH (08:05)
[2021-11-22] MEDS ORDERED: Furosemide 20 MG TAB PO SCH (09:00)
[2021-11-22] MEDS: Acetaminophen 325 MG TAB PO PRN (17:56)
[2021-11-22] MEDS: Methocarbamol 500 MG TAB PO PRN (21:08)
[2021-11-23] MEDS: Enoxaparin Sodium 40 MG/0.4 ML SYRINGE SC SCH (09:00)
[2021-11-23] MEDS: Lisinopril 5 MG TAB PO SCH (09:01)
[2021-11-23] MEDS: Gabapentin 300 MG CAP PO SCH ×2 (09:02→20:23)
[2021-11-23] MEDS: Carbidopa/Levodopa 10-100 mg Tablet PO SCH (09:02)
[2021-11-23] MEDS: Amantadine HCl 100 mg Capsule PO SCH (09:03)
[2021-11-23] MEDS: Ketotifen Fumarate 0.025% Ophth Soln 5 ml Bottle EA EYE PRN (09:05)
[2021-11-23] MEDS: Acetaminophen 325 MG TAB PO PRN (20:22)
[2021-11-24] MEDS: Methocarbamol 500 MG TAB PO PRN ×2 (03:57→20:54)
[2021-11-24] MEDS: Gabapentin 300 MG CAP PO SCH ×2 (09:02→20:54)
[2021-11-24] MEDS: Enoxaparin Sodium 40 MG/0.4 ML SYRINGE SC SCH (09:02)
[2021-11-24] MEDS: Amantadine HCl 100 mg Capsule PO SCH (09:02)
[2021-11-24] MEDS: Carbidopa/Levodopa 10-100 mg Tablet PO SCH (09:05)
[2021-11-24] MEDS: Lisinopril 5 MG TAB PO SCH (09:07)
[2021-11-24] MEDS: Ketotifen Fumarate 0.025% Ophth Soln 5 ml Bottle EA EYE PRN (09:09)
[2021-11-25] MEDS: Carbidopa/Levodopa 10-100 mg Tablet PO SCH (09:16)
[2021-11-25] MEDS: Enoxaparin Sodium 40 MG/0.4 ML SYRINGE SC SCH (09:17)
[2021-11-25] MEDS: Gabapentin 300 MG CAP PO SCH ×2 (09:17→21:28)
[2021-11-25] MEDS: Lisinopril 5 MG TAB PO SCH (09:17)
[2021-11-25] MEDS: Amantadine HCl 100 mg Capsule PO SCH (09:18)
[2021-11-25] MEDS: Loratadine 10 MG TAB PO PRN (12:06)
[2021-11-25] MEDS: Acetaminophen 325 MG TAB PO PRN (21:29)
[2021-11-26] MEDS: Loratadine 10 MG TAB PO PRN (05:30)
[2021-11-26] MEDS: Gabapentin 300 MG CAP PO SCH ×2 (09:01→20:41)
[2021-11-26] MEDS: Carbidopa/Levodopa 10-100 mg Tablet PO SCH (09:03)
[2021-11-26] MEDS: Amantadine HCl 100 mg Capsule PO SCH (09:06)
[2021-11-26] MEDS: Lisinopril 5 MG TAB PO SCH (09:06)
[2021-11-26] MEDS: Enoxaparin Sodium 40 MG/0.4 ML SYRINGE SC SCH (09:06)
[2021-11-26] MEDS: Ketotifen Fumarate 0.025% Ophth Soln 5 ml Bottle EA EYE PRN (09:07)
[2021-11-26] MEDS: Methocarbamol 500 MG TAB PO PRN (09:41)
[2021-11-26] MEDS ORDERED: Senokot S 8.6-50 MG TAB PO PRN (15:00)
[2021-11-27] MEDS ORDERED: Methyl Salicylate/Menthol 85 GM TUBE TOP PRN (08:31)
[2021-11-27] MEDS: Enoxaparin Sodium 40 MG/0.4 ML SYRINGE SC SCH (08:39)
[2021-11-27] MEDS: Lisinopril 5 MG TAB PO SCH (08:39)
[2021-11-27] MEDS: Carbidopa/Levodopa 10-100 mg Tablet PO SCH (08:40)
[2021-11-27] MEDS: Gabapentin 300 MG CAP PO SCH ×2 (08:40→21:36)
[2021-11-27] MEDS: Ketotifen Fumarate 0.025% Ophth Soln 5 ml Bottle EA EYE PRN (08:41)
[2021-11-27] MEDS: Amantadine HCl 100 mg Capsule PO SCH (08:41)
[2021-11-27] MEDS: Fluticasone Propionate Nasal Spray 16 gm Bottle NASAL SCH (10:00)
[2021-11-27] MEDS: Acetaminophen 325 MG TAB PO PRN (10:01)
[2021-11-27] MEDS: Loratadine 10 MG TAB PO PRN (10:06)
[2021-11-28] MEDS: Acetaminophen 325 MG TAB PO PRN (08:31)
[2021-11-28] MEDS: Loratadine 10 MG TAB PO PRN (08:32)
[2021-11-28] MEDS: Ketotifen Fumarate 0.025% Ophth Soln 5 ml Bottle EA EYE PRN (08:32)
[2021-11-28] MEDS: Fluticasone Propionate Nasal Spray 16 gm Bottle NASAL SCH (08:33)
[2021-11-28] MEDS: Amantadine HCl 100 mg Capsule PO SCH (08:33)
[2021-11-28] MEDS: Gabapentin 300 MG CAP PO SCH ×2 (08:33→20:39)
[2021-11-28] MEDS: Carbidopa/Levodopa 10-100 mg Tablet PO SCH (08:34)
[2021-11-28] MEDS: Enoxaparin Sodium 40 MG/0.4 ML SYRINGE SC SCH (08:34)
[2021-11-28] MEDS: Lisinopril 5 MG TAB PO SCH (08:34)
[2021-11-29 05:27] LABS: #Eosinphils 0.2 thou/uL (0.0-0.7); #Lymphocytes 1.3 thou/uL (1.20-3.40); #Monocytes 0.4 thou/uL (0.11-0.59); #Neutrophils 2.6 thou/uL (1.40-6.50); %Basophils 0.4 % (0.0-1.0); %Lymphocytes 28.8 % (21.0-51.0); %Monocytes 7.8 % (0.0-10.0); %Neutrophils 58.1 % (42.0-75.0); Hemoglobin 11.5 g/dL (12.0-16.0); Mean Corpuscular HGB CONC 31.5 g/dL (32.0-36.0); Mean Corpuscular Hemoglobin 29.4 pg (27.0-31.0); Mean Corpuscular Volume 93.5 fL (78.0-98.0); Mean Platelet Volume 7.3 fL (7.4-10.4); Platelet Count 210 thou/uL (130-400); RBC Distribution Width 12.3 % (11.5-14.5); Red Blood Cell (RBC) Count 3.91 mill/uL (4.20-5.40); White Blood Cell (WBC) Count 4.4 thou/uL (4.8-10.8)
[2021-11-29 05:39] LABS: ALT (SGPT) 17 U/L (8-55); AST (SGOT) 12 U/L (5-34); Albumin 3.7 g/dL (3.4-4.8); Alkaline Phosphatase 67 U/L (40-110); Anion Gap 14 mmol/L (10-20); BUN (Urea Nitrogen) 15 mg/dL (9.8-20.1); Bilirubin, Total 0.4 mg/dL (0.2-1.2); Calc. Creatinine Clearance 97 mL/min (70-130); Calcium 8.9 mg/dL (7.8-10.44); Carbon Dioxide 23 mmol/L (23-31); Chloride 107 mmol/L (98-107); Estimated GFR 78; Globulin 2.6 g/dL (2.4-3.5); Glucose 89 mg/dL (80-115); Potassium 3.9 mmol/L (3.5-5.1); Protein, Total 6.3 g/dL (5.8-8.1); Sodium 140 mmol/L (136-145)
[2021-11-29 06:36] VITALS: BMI 34.4
[2021-11-29] MEDS: Fluticasone Propionate Nasal Spray 16 gm Bottle NASAL SCH (07:51)
[2021-11-29] MEDS: Ketotifen Fumarate 0.025% Ophth Soln 5 ml Bottle EA EYE PRN (07:51)
[2021-11-29] MEDS: Lisinopril 5 MG TAB PO SCH (07:52)
[2021-11-29] MEDS: Amantadine HCl 100 mg Capsule PO SCH (07:52)
[2021-11-29] MEDS: Enoxaparin Sodium 40 MG/0.4 ML SYRINGE SC SCH (07:53)
[2021-11-29] MEDS: Loratadine 10 MG TAB PO PRN (07:53)
[2021-11-29] MEDS: Gabapentin 300 MG CAP PO SCH ×2 (07:54→21:26)
[2021-11-29] MEDS: Acetaminophen 325 MG TAB PO PRN ×2 (07:57→21:13)
[2021-11-29] MEDS: Carbidopa/Levodopa 10-100 mg Tablet PO SCH (08:48)
[2021-11-29] MEDS: Methocarbamol 500 MG TAB PO PRN (21:11)
[2021-11-30] MEDS: Acetaminophen 325 MG TAB PO PRN (02:36)
[2021-11-30] MEDS: Gabapentin 300 MG CAP PO SCH ×2 (07:55→20:40)
[2021-11-30] MEDS: Loratadine 10 MG TAB PO PRN (07:56)
[2021-11-30] MEDS: Amantadine HCl 100 mg Capsule PO SCH (07:56)
[2021-11-30] MEDS: Fluticasone Propionate Nasal Spray 16 gm Bottle NASAL SCH (07:56)
[2021-11-30] MEDS: Ketotifen Fumarate 0.025% Ophth Soln 5 ml Bottle EA EYE PRN (07:57)
[2021-11-30] MEDS: Carbidopa/Levodopa 10-100 mg Tablet PO SCH (07:57)
[2021-11-30] MEDS: Enoxaparin Sodium 40 MG/0.4 ML SYRINGE SC SCH (07:57)
[2021-11-30] MEDS: Lisinopril 5 MG TAB PO SCH (07:58)
[2021-12-01] MEDS: Enoxaparin Sodium 40 MG/0.4 ML SYRINGE SC SCH (07:54)
[2021-12-01] MEDS: Lisinopril 5 MG TAB PO SCH (07:56)
[2021-12-01] MEDS: Gabapentin 300 MG CAP PO SCH ×2 (07:56→20:39)
[2021-12-01] MEDS: Amantadine HCl 100 mg Capsule PO SCH (07:56)
[2021-12-01] MEDS: Carbidopa/Levodopa 10-100 mg Tablet PO SCH (07:58)
[2021-12-01] MEDS: Fluticasone Propionate Nasal Spray 16 gm Bottle NASAL SCH (08:05)
[2021-12-01] MEDS: Loratadine 10 MG TAB PO PRN (23:58)
[2021-12-02] MEDS: Lisinopril 5 MG TAB PO SCH (08:10)
[2021-12-02] MEDS: Amantadine HCl 100 mg Capsule PO SCH (08:10)
[2021-12-02] MEDS: Fluticasone Propionate Nasal Spray 16 gm Bottle NASAL SCH (08:11)
[2021-12-02] MEDS: Loratadine 10 MG TAB PO PRN (08:11)
[2021-12-02] MEDS: Ketotifen Fumarate 0.025% Ophth Soln 5 ml Bottle EA EYE PRN (08:11)
[2021-12-02] MEDS: Gabapentin 300 MG CAP PO SCH ×2 (08:12→20:32)
[2021-12-02] MEDS: Carbidopa/Levodopa 10-100 mg Tablet PO SCH (08:12)
[2021-12-02] MEDS: Enoxaparin Sodium 40 MG/0.4 ML SYRINGE SC SCH (08:12)
[2021-12-03] MEDS ORDERED: FLU VACC QS2022-23(65YR UP)/PF 240 MCG/0.7 ML SYRINGE IM ONE (08:00)
[2021-12-03 08:10] VITALS: TEMP 96.7
[2021-12-03] MEDS: Lisinopril 5 MG TAB PO SCH (09:46)
[2021-12-03] MEDS: Amantadine HCl 100 mg Capsule PO SCH (09:46)
[2021-12-03] MEDS: Gabapentin 300 MG CAP PO SCH (09:48)
[2021-12-03] MEDS: Enoxaparin Sodium 40 MG/0.4 ML SYRINGE SC SCH (09:49)
[2021-12-03] MEDS: Carbidopa/Levodopa 10-100 mg Tablet PO SCH (09:50)
[2021-12-03] MEDS: Fluticasone Propionate Nasal Spray 16 gm Bottle NASAL SCH (09:56)
[2021-12-03 11:09] VITALS: BP 132/65
== END 2021-12-03 17:15 | disposition home health service (06) | DRG 947 ==
LOC: NAV ACUTE 19:58
PROVIDERS: ADMIT Family Medicine; ATTEND Family Medicine
PROC: 8E0ZXY6 Isolation (ICD-10-PCS; principal; 2021-11-13)
DX: R53.1 Weakness (principal); U07.1 COVID-19; I50.32 Chronic diastolic (congestive) heart failure; G20 Parkinson's disease; Z98.51 Tubal ligation status; Z98.890 Other specified postprocedural states; Z82.49 Family history of ischemic heart disease and other diseases of the circulatory system; Z88.5 Allergy status to narcotic agent; Z79.899 Other long term (current) drug therapy; I89.0 Lymphedema, not elsewhere classified; G62.9 Polyneuropathy, unspecified; I11.0 Hypertensive heart disease with heart failure; J30.2 Other seasonal allergic rhinitis; M54.50 Low back pain, unspecified; G89.29 Other chronic pain
CPT/HCPCS: 36415; 80048; 80053; 85025; 90471; 90662; G0008; J1650

== ENCOUNTER 2021-12-11 15:04 | Emergency (ER) | payer MEDICARE, OTHER ==
[2021-12-11 16:44] LABS: Hemoglobin 13.1 g/dL (12.0-16.0); Mean Corpuscular Hemoglobin 28.8 pg (27.0-31.0); Mean Corpuscular Volume 92.8 fL (78.0-98.0); Mean Platelet Volume 7.8 fL (7.4-10.4); Platelet Count 244 thou/uL (130-400); RBC Distribution Width 12.5 % (11.5-14.5); Red Blood Cell (RBC) Count 4.55 mill/uL (4.20-5.40); White Blood Cell (WBC) Count 5.1 thou/uL (4.8-10.8)
[2021-12-11 16:55] LABS: ALT (SGPT) 21 U/L (8-55); AST (SGOT) 17 U/L (5-34); Albumin 4.8 g/dL (3.4-4.8); Alkaline Phosphatase 77 U/L (40-110); Anion Gap 19 mmol/L (10-20); BUN (Urea Nitrogen) 11 mg/dL (9.8-20.1); Bilirubin, Total 0.8 mg/dL (0.2-1.2); Calc. Creatinine Clearance 0 mL/min (70-130); Calcium 9.7 mg/dL (7.8-10.44); Carbon Dioxide 24 mmol/L (23-31); Chloride 104 mmol/L (98-107); Estimated GFR 75; Globulin 3.4 g/dL (2.4-3.5); Glucose 84 mg/dL (80-115); Potassium 3.7 mmol/L (3.5-5.1); Protein, Total 8.2 g/dL (5.8-8.1); Sodium 143 mmol/L (136-145)
[2021-12-11 16:59] LABS: Eosinophils 1 % (0-10); Lymphocytes 23 % (21-51); MDiff Complete? YES; Monocytes 2 % (0-10); Neutrophil 74 % (42-75); Platelet Morphology Comment Appears Adequate; RBC Morphology Normal
[2021-12-11 17:21] LABS: Bilirubin Negative (Negative); Blood, Urine Moderate (Negative); Clarity Clear (Clear); Glucose, Urine (Dipstick) Negative (Negative); Ketone, Urine Negative (Negative); Leukocyte Negative (Negative); Nitrite Negative (Negative); Protein, Urine (Dipstick) Negative (Neg-Trace); Urobilinogen 0.2 mg/dL (Less than 2)
[2021-12-11 17:23] LABS: Specific Gravity, Urine 1.026 (1.002-1.036); Squamous Epithelial 0-3 HPF (0-3)
[2021-12-11 17:24] LABS: Bacteria/HPF Rare-Few HPF (None Seen)
== END 2021-12-11 19:00 | disposition home or self-care (01) ==
LOC: NAV ERS 15:04
DX: G20 Parkinson's disease (principal); K21.9 Gastro-esophageal reflux disease without esophagitis; I10 Essential (primary) hypertension; Z79.899 Other long term (current) drug therapy
CPT/HCPCS: 51701; 71045; 80053; 81003; 81015; 83605; 85025; 87086

== ENCOUNTER 2021-12-18 16:57 | Emergency (ER) | payer MEDICARE, OTHER ==
[2021-12-18 17:55] LABS: Bilirubin Negative (Negative); Blood, Urine Large (Negative); Clarity Clear (Clear); Glucose, Urine (Dipstick) Negative (Negative); Ketone, Urine Negative (Negative); Leukocyte Moderate (Negative); Nitrite Negative (Negative); Protein, Urine (Dipstick) 30 mg/dL (Neg-Trace); Urobilinogen 0.2 mg/dL (Less than 2)
[2021-12-18 17:56] LABS: Bacteria/HPF 2+ HPF (None Seen); Squamous Epithelial 0-3 HPF (0-3); WBC/HPF Greater Than 50 HPF (0-3)
[2021-12-18 17:57] LABS: Specific Gravity, Urine 1.025 (1.002-1.036)
[2021-12-18] MEDS ORDERED: Nitrofurantoin Macrocrystal 50 MG CAP ONE (18:07)
== END 2021-12-18 19:17 | disposition home or self-care (01) ==
LOC: NAV ERS 16:57
DX: N39.0 Urinary tract infection, site not specified (principal); K21.9 Gastro-esophageal reflux disease without esophagitis; I10 Essential (primary) hypertension; Z79.899 Other long term (current) drug therapy
CPT/HCPCS: 81003; 81015; 87086; 99283

== ENCOUNTER 2022-03-14 13:18 | Inpatient (IN) | payer MEDICARE, MEDICAID ==
[2022-03-14] MEDS ORDERED: Ondansetron ODT 4 MG TAB PO PRN (16:36)
[2022-03-14] MEDS ORDERED: Acetaminophen 650 MG Suppository PR PRN (16:36)
[2022-03-14] MEDS ORDERED: Sodium Chloride 0.65% Nasal 44 ML BOT EA NARE PRN (16:36)
[2022-03-14] MEDS ORDERED: Bisacodyl 10 MG SUPP PR PRN (16:36)
[2022-03-14] MEDS ORDERED: Famotidine 20 MG TAB PO SCH (21:00)
[2022-03-14] MEDS: Gabapentin 300 MG CAP PO SCH (21:20)
[2022-03-15 06:06] LABS: #Eosinphils 0.2 thou/uL (0.0-0.7); #Lymphocytes 1.3 thou/uL (1.20-3.40); #Monocytes 0.3 thou/uL (0.11-0.59); #Neutrophils 3.9 thou/uL (1.40-6.50); %Basophils 0.6 % (0.0-1.0); %Eosinophils 3.8 % (0.0-10.0); %Lymphocytes 23.1 % (21.0-51.0); %Monocytes 5.6 % (0.0-10.0); %Neutrophils 66.9 % (42.0-75.0); Hemoglobin 13.6 g/dL (12.0-16.0); Mean Corpuscular HGB CONC 31.1 g/dL (32.0-36.0); Mean Corpuscular Hemoglobin 28.8 pg (27.0-31.0); Mean Corpuscular Volume 92.9 fl (78.0-98.0); Mean Platelet Volume 7.6 fL (7.4-10.4); Platelet Count 209 10x3/uL (130-400); RBC Distribution Width 12.8 % (11.5-14.5); Red Blood Cell (RBC) Count 4.71 mill/uL (4.20-5.40); White Blood Cell (WBC) Count 5.8 10x3/uL (4.8-10.8)
[2022-03-15 06:23] LABS: ALT (SGPT) 31 U/L (8-55); AST (SGOT) 20 U/L (5-34); Albumin 3.7 g/dL (3.4-4.8); Alkaline Phosphatase 64 U/L (40-110); Anion Gap 12 mmol/L (10-20); BUN (Urea Nitrogen) 15 mg/dL (9.8-20.1); Bilirubin, Total 0.6 mg/dL (0.2-1.2); Calc. Creatinine Clearance 102 mL/min (70-130); Calcium 9.2 mg/dL (7.8-10.44); Carbon Dioxide 23 mmol/L (23-31); Chloride 108 mmol/L (98-107); Estimated GFR 83; Globulin 2.7 g/dL (2.4-3.5); Glucose 86 mg/dL (80-115); Potassium 3.8 mmol/L (3.5-5.1); Protein, Total 6.4 g/dL (5.8-8.1); Sodium 139 mmol/L (136-145)
[2022-03-15] MEDS: Acetaminophen 325 MG TAB PO PRN ×2 (09:31→19:38)
[2022-03-15] MEDS: Gabapentin 300 MG CAP PO SCH ×2 (09:35→20:47)
[2022-03-15] MEDS: Amantadine HCl 100 mg Capsule PO SCH (09:36)
[2022-03-15] MEDS: Carbidopa/Levodopa 10-100 mg Tablet PO SCH (09:37)
[2022-03-15] MEDS: Lisinopril 10 MG TAB PO SCH (09:37)
[2022-03-15] MEDS: Fluticasone Propionate Nasal Spray 16 gm Bottle NASAL SCH (09:48)
[2022-03-16] MEDS: Artificial Tear Sol 15 ML BOT EA EYE PRN (05:55)
[2022-03-16] MEDS: Amantadine HCl 100 mg Capsule PO SCH (08:51)
[2022-03-16] MEDS: Gabapentin 300 MG CAP PO SCH ×2 (08:51→20:51)
[2022-03-16] MEDS: Lisinopril 10 MG TAB PO SCH (08:57)
[2022-03-16] MEDS: Carbidopa/Levodopa 10-100 mg Tablet PO SCH (09:00)
[2022-03-16] MEDS: Fluticasone Propionate Nasal Spray 16 gm Bottle NASAL SCH (09:07)
[2022-03-16 11:24] LABS: #Basophils 0.1 thou/uL (0.0-0.2); #Eosinphils 0.2 thou/uL (0.0-0.7); #Lymphocytes 1.3 thou/uL (1.20-3.40); #Monocytes 0.4 thou/uL (0.11-0.59); #Neutrophils 5.2 thou/uL (1.40-6.50); %Basophils 0.7 % (0.0-1.0); %Eosinophils 2.6 % (0.0-10.0); %Lymphocytes 19.7 % (21.0-51.0); %Monocytes 5.7 % (0.0-10.0); %Neutrophils 73.1 % (42.0-75.0); Hemoglobin 13.6 g/dL (12.0-16.0); Mean Corpuscular HGB CONC 30.9 g/dL (32.0-36.0); Mean Corpuscular Hemoglobin 28.9 pg (27.0-31.0); Mean Corpuscular Volume 93.5 fl (78.0-98.0); Mean Platelet Volume 7.4 fL (7.4-10.4); Platelet Count 229 10x3/uL (130-400); RBC Distribution Width 12.9 % (11.5-14.5); Red Blood Cell (RBC) Count 4.71 mill/uL (4.20-5.40)
[2022-03-16] MEDS: Calcium Carbonate 500 MG ChewTAB PO PRN (16:43)
[2022-03-17] MEDS: Fluticasone Propionate Nasal Spray 16 gm Bottle NASAL SCH (08:20)
[2022-03-17] MEDS: Amantadine HCl 100 mg Capsule PO SCH (08:20)
[2022-03-17] MEDS: Gabapentin 300 MG CAP PO SCH ×2 (08:21→20:13)
[2022-03-17] MEDS: Lisinopril 10 MG TAB PO SCH (08:23)
[2022-03-17] MEDS: Carbidopa/Levodopa 10-100 mg Tablet PO SCH (08:23)
[2022-03-17] MEDS: Methocarbamol 500 MG TAB PO PRN (20:13)
[2022-03-18] MEDS: Fluticasone Propionate Nasal Spray 16 gm Bottle NASAL SCH (08:30)
[2022-03-18] MEDS: Gabapentin 300 MG CAP PO SCH ×2 (08:31→21:14)
[2022-03-18] MEDS: Amantadine HCl 100 mg Capsule PO SCH (08:31)
[2022-03-18] MEDS: Lisinopril 10 MG TAB PO SCH (08:55)
[2022-03-18] MEDS: Carbidopa/Levodopa 10-100 mg Tablet PO SCH (08:55)
[2022-03-18] MEDS: Methocarbamol 500 MG TAB PO PRN (21:14)
[2022-03-19] MEDS: Acetaminophen 325 MG TAB PO PRN ×2 (06:20→20:24)
[2022-03-19] MEDS: Carbidopa/Levodopa 10-100 mg Tablet PO SCH (09:03)
[2022-03-19] MEDS: Lisinopril 10 MG TAB PO SCH (09:04)
[2022-03-19] MEDS: Amantadine HCl 100 mg Capsule PO SCH (09:04)
[2022-03-19] MEDS: Gabapentin 300 MG CAP PO SCH ×2 (09:04→20:26)
[2022-03-19] MEDS: Fluticasone Propionate Nasal Spray 16 gm Bottle NASAL SCH (09:05)
[2022-03-19] MEDS: Methocarbamol 500 MG TAB PO PRN (14:13)
[2022-03-20 07:10] LABS: #Eosinphils 0.2 thou/uL (0.0-0.7); #Lymphocytes 1.3 thou/uL (1.20-3.40); #Monocytes 0.2 thou/uL (0.11-0.59); #Neutrophils 2.8 thou/uL (1.40-6.50); %Basophils 0.6 % (0.0-1.0); %Eosinophils 3.4 % (0.0-10.0); %Lymphocytes 28.9 % (21.0-51.0); %Monocytes 4.8 % (0.0-10.0); %Neutrophils 62.3 % (42.0-75.0); Mean Corpuscular HGB CONC 31.8 g/dL (32.0-36.0); Mean Corpuscular Hemoglobin 29.3 pg (27.0-31.0); Mean Corpuscular Volume 92.3 fl (78.0-98.0); Mean Platelet Volume 7.3 fL (7.4-10.4); Platelet Count 224 10x3/uL (130-400); RBC Distribution Width 12.7 % (11.5-14.5); Red Blood Cell (RBC) Count 4.45 mill/uL (4.20-5.40); White Blood Cell (WBC) Count 4.4 10x3/uL (4.8-10.8)
[2022-03-20 07:22] LABS: Anion Gap 12 mmol/L (10-20); BUN (Urea Nitrogen) 19 mg/dL (9.8-20.1); Calc. Creatinine Clearance 92 mL/min (70-130); Calcium 9.6 mg/dL (7.8-10.44); Carbon Dioxide 24 mmol/L (23-31); Chloride 107 mmol/L (98-107); Estimated GFR 74; Glucose 89 mg/dL (80-115); Potassium 4.1 mmol/L (3.5-5.1); Sodium 139 mmol/L (136-145)
[2022-03-20] MEDS: Acetaminophen 325 MG TAB PO PRN (08:37)
[2022-03-20] MEDS: Amantadine HCl 100 mg Capsule PO SCH (08:37)
[2022-03-20] MEDS: Gabapentin 300 MG CAP PO SCH ×2 (08:38→20:49)
[2022-03-20] MEDS: Carbidopa/Levodopa 10-100 mg Tablet PO SCH (08:39)
[2022-03-20] MEDS: Artificial Tear Sol 15 ML BOT EA EYE PRN (08:41)
[2022-03-20] MEDS: Fluticasone Propionate Nasal Spray 16 gm Bottle NASAL SCH (08:41)
[2022-03-20] MEDS: Lisinopril 10 MG TAB PO SCH (08:41)
[2022-03-20] MEDS: Methocarbamol 500 MG TAB PO PRN (20:50)
[2022-03-21] MEDS: Carbidopa/Levodopa 10-100 mg Tablet PO SCH (08:39)
[2022-03-21] MEDS: Lisinopril 10 MG TAB PO SCH (08:40)
[2022-03-21] MEDS: Gabapentin 300 MG CAP PO SCH ×2 (08:40→20:51)
[2022-03-21] MEDS: Fluticasone Propionate Nasal Spray 16 gm Bottle NASAL SCH (08:41)
[2022-03-21] MEDS: Amantadine HCl 100 mg Capsule PO SCH ×2 (08:41→08:50)
[2022-03-21] MEDS: Artificial Tear Sol 15 ML BOT EA EYE PRN (08:41)
[2022-03-21] MEDS: Senokot S 8.6-50 MG TAB PO PRN (08:46)
[2022-03-21] MEDS: Methocarbamol 500 MG TAB PO PRN (11:59)
[2022-03-21] MEDS: Acetaminophen 325 MG TAB PO PRN (20:55)
[2022-03-22] MEDS: Amantadine HCl 100 mg Capsule PO SCH (08:51)
[2022-03-22] MEDS: Gabapentin 300 MG CAP PO SCH ×2 (08:52→21:27)
[2022-03-22] MEDS: Lisinopril 10 MG TAB PO SCH (08:53)
[2022-03-22] MEDS: Fluticasone Propionate Nasal Spray 16 gm Bottle NASAL SCH (08:54)
[2022-03-22] MEDS: Carbidopa/Levodopa 10-100 mg Tablet PO SCH (08:59)
[2022-03-22] MEDS: Acetaminophen 325 MG TAB PO PRN ×2 (12:31→21:26)
[2022-03-22] MEDS: Methocarbamol 500 MG TAB PO PRN (12:31)
[2022-03-22] MEDS: Senokot S 8.6-50 MG TAB PO PRN (12:37)
[2022-03-22] MEDS: Bisacodyl 5 MG TAB PO PRN (21:27)
[2022-03-23] MEDS: Gabapentin 300 MG CAP PO SCH ×2 (09:15→21:16)
[2022-03-23] MEDS: Amantadine HCl 100 mg Capsule PO SCH (09:15)
[2022-03-23] MEDS: Lisinopril 10 MG TAB PO SCH (09:16)
[2022-03-23] MEDS: Artificial Tear Sol 15 ML BOT EA EYE PRN (09:18)
[2022-03-23] MEDS: Fluticasone Propionate Nasal Spray 16 gm Bottle NASAL SCH (09:18)
[2022-03-23] MEDS: Carbidopa/Levodopa 10-100 mg Tablet PO SCH (09:18)
[2022-03-24] MEDS: Acetaminophen 325 MG TAB PO PRN (05:24)
[2022-03-24] MEDS: Amantadine HCl 100 mg Capsule PO SCH (09:47)
[2022-03-24] MEDS: Gabapentin 300 MG CAP PO SCH ×2 (09:48→21:11)
[2022-03-24] MEDS: Fluticasone Propionate Nasal Spray 16 gm Bottle NASAL SCH (09:49)
[2022-03-24] MEDS: Carbidopa/Levodopa 10-100 mg Tablet PO SCH (09:49)
[2022-03-24] MEDS: Lisinopril 10 MG TAB PO SCH (09:50)
[2022-03-24] MEDS: Methocarbamol 500 MG TAB PO PRN (09:59)
[2022-03-25] MEDS: Lisinopril 10 MG TAB PO SCH ×2 (09:27→09:34)
[2022-03-25] MEDS: Amantadine HCl 100 mg Capsule PO SCH (09:27)
[2022-03-25] MEDS: Gabapentin 300 MG CAP PO SCH ×2 (09:28→21:25)
[2022-03-25] MEDS: Fluticasone Propionate Nasal Spray 16 gm Bottle NASAL SCH (09:29)
[2022-03-25] MEDS: Carbidopa/Levodopa 10-100 mg Tablet PO SCH (09:38)
[2022-03-25] MEDS: Methocarbamol 500 MG TAB PO PRN (17:04)
[2022-03-26] MEDS: Lisinopril 10 MG TAB PO SCH (09:27)
[2022-03-26] MEDS: Gabapentin 300 MG CAP PO SCH ×2 (09:28→20:41)
[2022-03-26] MEDS: Amantadine HCl 100 mg Capsule PO SCH (09:29)
[2022-03-26] MEDS: Carbidopa/Levodopa 10-100 mg Tablet PO SCH (09:29)
[2022-03-26] MEDS: Fluticasone Propionate Nasal Spray 16 gm Bottle NASAL SCH (09:30)
[2022-03-26] MEDS: Acetaminophen 325 MG TAB PO PRN (10:46)
[2022-03-27] MEDS: Carbidopa/Levodopa 10-100 mg Tablet PO SCH (05:20)
[2022-03-27] MEDS: Fluticasone Propionate Nasal Spray 16 gm Bottle NASAL SCH (08:55)
[2022-03-27] MEDS: Gabapentin 300 MG CAP PO SCH ×2 (08:56→20:49)
[2022-03-27] MEDS: Bisacodyl 5 MG TAB PO PRN (08:57)
[2022-03-27] MEDS: Lisinopril 10 MG TAB PO SCH (08:57)
[2022-03-27] MEDS: Amantadine HCl 100 mg Capsule PO SCH (08:57)
[2022-03-28] MEDS: Carbidopa/Levodopa 10-100 mg Tablet PO SCH (06:08)
[2022-03-28] MEDS: Lisinopril 10 MG TAB PO SCH (08:58)
[2022-03-28] MEDS: Amantadine HCl 100 mg Capsule PO SCH (08:58)
[2022-03-28] MEDS: Fluticasone Propionate Nasal Spray 16 gm Bottle NASAL SCH (08:59)
[2022-03-28] MEDS: Artificial Tear Sol 15 ML BOT EA EYE PRN (08:59)
[2022-03-28] MEDS: Gabapentin 300 MG CAP PO SCH ×2 (09:03→21:05)
[2022-03-28] MEDS: Loratadine 10 MG TAB PO PRN (15:48)
[2022-03-28] MEDS: Guaifenesin DM 100-10/5 ML UDCUP PO PRN (15:57)
[2022-03-28] MEDS: Acetaminophen 325 MG TAB PO PRN (18:28)
[2022-03-28] MEDS: Methocarbamol 500 MG TAB PO PRN (21:06)
[2022-03-29] MEDS: Carbidopa/Levodopa 10-100 mg Tablet PO SCH (06:17)
[2022-03-29] MEDS: Amantadine HCl 100 mg Capsule PO SCH (08:38)
[2022-03-29] MEDS: Gabapentin 300 MG CAP PO SCH ×2 (08:38→21:35)
[2022-03-29] MEDS: Fluticasone Propionate Nasal Spray 16 gm Bottle NASAL SCH (08:38)
[2022-03-29] MEDS: Acetaminophen 325 MG TAB PO PRN (08:39)
[2022-03-29] MEDS: Lisinopril 10 MG TAB PO SCH (08:39)
[2022-03-29] MEDS: Artificial Tear Sol 15 ML BOT EA EYE PRN (18:08)
[2022-03-29] MEDS: Loratadine 10 MG TAB PO PRN (18:09)
[2022-03-29] MEDS: Guaifenesin DM 100-10/5 ML UDCUP PO PRN (18:09)
[2022-03-30] MEDS: Acetaminophen 325 MG TAB PO PRN (05:53)
[2022-03-30] MEDS: Carbidopa/Levodopa 10-100 mg Tablet PO SCH ×2 (05:54→07:55)
[2022-03-30 06:05] LABS: #Eosinphils 0.2 thou/uL (0.0-0.7); #Lymphocytes 1.4 thou/uL (1.20-3.40); #Monocytes 0.3 thou/uL (0.11-0.59); %Basophils 0.6 % (0.0-1.0); %Eosinophils 3.9 % (0.0-10.0); %Lymphocytes 28.9 % (21.0-51.0); %Monocytes 5.5 % (0.0-10.0); %Neutrophils 61.2 % (42.0-75.0); Hemoglobin 13.8 g/dL (12.0-16.0); Mean Corpuscular HGB CONC 30.7 g/dL (32.0-36.0); Mean Corpuscular Hemoglobin 28.7 pg (27.0-31.0); Mean Corpuscular Volume 93.7 fl (78.0-98.0); Mean Platelet Volume 7.8 fL (7.4-10.4); Platelet Count 235 10x3/uL (130-400); RBC Distribution Width 12.8 % (11.5-14.5); Red Blood Cell (RBC) Count 4.79 mill/uL (4.20-5.40); White Blood Cell (WBC) Count 4.9 10x3/uL (4.8-10.8)
[2022-03-30 06:15] LABS: Anion Gap 17 mmol/L (10-20); BUN (Urea Nitrogen) 15 mg/dL (9.8-20.1); Calc. Creatinine Clearance 94 mL/min (70-130); Calcium 9.5 mg/dL (7.8-10.44); Carbon Dioxide 21 mmol/L (23-31); Chloride 109 mmol/L (98-107); Estimated GFR 76; Glucose 85 mg/dL (80-115); Potassium 4.2 mmol/L (3.5-5.1); Sodium 143 mmol/L (136-145)
[2022-03-30] MEDS: Gabapentin 300 MG CAP PO SCH ×2 (10:25→20:29)
[2022-03-30] MEDS: Amantadine HCl 100 mg Capsule PO SCH (10:25)
[2022-03-30] MEDS: Fluticasone Propionate Nasal Spray 16 gm Bottle NASAL SCH (10:26)
[2022-03-30] MEDS: Guaifenesin DM 100-10/5 ML UDCUP PO PRN (17:26)
[2022-03-31] MEDS: Carbidopa/Levodopa 10-100 mg Tablet PO SCH (05:15)
[2022-03-31] MEDS: Fluticasone Propionate Nasal Spray 16 gm Bottle NASAL SCH (10:18)
[2022-03-31] MEDS: Acetaminophen 325 MG TAB PO PRN (10:19)
[2022-03-31] MEDS: Amantadine HCl 100 mg Capsule PO SCH (10:19)
[2022-03-31] MEDS: Gabapentin 300 MG CAP PO SCH ×2 (10:20→20:18)
[2022-03-31] MEDS: Loratadine 10 MG TAB PO PRN (18:09)
[2022-03-31] MEDS: Methocarbamol 500 MG TAB PO PRN (18:09)
[2022-04-01] MEDS: Carbidopa/Levodopa 10-100 mg Tablet PO SCH (05:29)
[2022-04-01] MEDS: Gabapentin 300 MG CAP PO SCH ×2 (08:04→20:37)
[2022-04-01] MEDS: Amantadine HCl 100 mg Capsule PO SCH (08:05)
[2022-04-01] MEDS: Loratadine 10 MG TAB PO PRN (08:05)
[2022-04-01] MEDS: Fluticasone Propionate Nasal Spray 16 gm Bottle NASAL SCH (08:06)
[2022-04-01] MEDS: Artificial Tear Sol 15 ML BOT EA EYE PRN (08:07)
[2022-04-01] MEDS: Senokot S 8.6-50 MG TAB PO PRN (12:24)
[2022-04-01] MEDS: Cepastat Lozenges 1 LOZ PO PRN (16:45)
[2022-04-01] MEDS: Benzonatate 100 MG CAP PO PRN (16:45)
[2022-04-01] MEDS: Methocarbamol 500 MG TAB PO PRN (20:37)
[2022-04-02] MEDS: Carbidopa/Levodopa 10-100 mg Tablet PO SCH (05:32)
[2022-04-02] MEDS: Loratadine 10 MG TAB PO PRN (08:24)
[2022-04-02] MEDS: Benzonatate 100 MG CAP PO PRN (08:25)
[2022-04-02] MEDS: Fluticasone Propionate Nasal Spray 16 gm Bottle NASAL SCH (08:26)
[2022-04-02] MEDS: Artificial Tear Sol 15 ML BOT EA EYE PRN (08:27)
[2022-04-02] MEDS: Gabapentin 300 MG CAP PO SCH ×2 (08:28→20:51)
[2022-04-02] MEDS: Bisacodyl 5 MG TAB PO PRN (08:28)
[2022-04-02] MEDS: Amantadine HCl 100 mg Capsule PO SCH (08:28)
[2022-04-02] MEDS: Guaifenesin DM 100-10/5 ML UDCUP PO PRN (11:44)
[2022-04-02] MEDS: Methocarbamol 500 MG TAB PO PRN (20:50)
[2022-04-02] MEDS: Calcium Carbonate 500 MG ChewTAB PO PRN (23:00)
[2022-04-03] MEDS: Carbidopa/Levodopa 10-100 mg Tablet PO SCH (07:00)
[2022-04-03] MEDS: Benzonatate 100 MG CAP PO PRN (08:39)
[2022-04-03] MEDS: Amantadine HCl 100 mg Capsule PO SCH (08:40)
[2022-04-03] MEDS: Gabapentin 300 MG CAP PO SCH ×2 (08:40→20:20)
[2022-04-03] MEDS: Fluticasone Propionate Nasal Spray 16 gm Bottle NASAL SCH (08:42)
[2022-04-03] MEDS ORDERED: Lisinopril 10 MG TAB PO SCH (10:00)
[2022-04-03] MEDS ORDERED: Lisinopril 5 MG TAB PO SCH (10:00)
[2022-04-03] MEDS: Methocarbamol 500 MG TAB PO PRN (17:03)
[2022-04-03] MEDS: Loratadine 10 MG TAB PO PRN (20:20)
[2022-04-04] MEDS: Carbidopa/Levodopa 10-100 mg Tablet PO SCH (05:13)
[2022-04-04 06:00] LABS: #Eosinphils 0.2 thou/uL (0.0-0.7); #Lymphocytes 1.5 thou/uL (1.20-3.40); #Monocytes 0.3 thou/uL (0.11-0.59); #Neutrophils 3.5 thou/uL (1.40-6.50); %Basophils 0.7 % (0.0-1.0); %Eosinophils 3.5 % (0.0-10.0); %Lymphocytes 27.2 % (21.0-51.0); %Monocytes 5.3 % (0.0-10.0); %Neutrophils 63.4 % (42.0-75.0); Mean Corpuscular HGB CONC 32.3 g/dL (32.0-36.0); Mean Corpuscular Hemoglobin 29.2 pg (27.0-31.0); Mean Corpuscular Volume 90.3 fl (78.0-98.0); Mean Platelet Volume 7.2 fL (7.4-10.4); Platelet Count 193 10x3/uL (130-400); RBC Distribution Width 12.6 % (11.5-14.5); Red Blood Cell (RBC) Count 4.47 mill/uL (4.20-5.40); White Blood Cell (WBC) Count 5.5 10x3/uL (4.8-10.8)
[2022-04-04 06:09] VITALS: BMI 35.4
[2022-04-04 06:14] LABS: Anion Gap 15 mmol/L (10-20); BUN (Urea Nitrogen) 15 mg/dL (9.8-20.1); Calc. Creatinine Clearance 92 mL/min (70-130); Calcium 9.7 mg/dL (7.8-10.44); Carbon Dioxide 22 mmol/L (23-31); Chloride 108 mmol/L (98-107); Estimated GFR 72; Glucose 88 mg/dL (80-115); Potassium 4.2 mmol/L (3.5-5.1); Sodium 141 mmol/L (136-145)
[2022-04-04] MEDS: Gabapentin 300 MG CAP PO SCH ×2 (09:15→20:23)
[2022-04-04] MEDS: Lisinopril 5 MG TAB PO SCH (09:16)
[2022-04-04] MEDS: Amantadine HCl 100 mg Capsule PO SCH (09:17)
[2022-04-04] MEDS: Fluticasone Propionate Nasal Spray 16 gm Bottle NASAL SCH (09:22)
[2022-04-04] MEDS: Benzonatate 100 MG CAP PO PRN (14:02)
[2022-04-04] MEDS: Methocarbamol 500 MG TAB PO PRN (20:22)
[2022-04-04] MEDS: Cepastat Lozenges 1 LOZ PO PRN (20:26)
[2022-04-05] MEDS: Carbidopa/Levodopa 10-100 mg Tablet PO SCH (06:16)
[2022-04-05] MEDS: Gabapentin 300 MG CAP PO SCH ×2 (08:27→20:26)
[2022-04-05] MEDS: Lisinopril 5 MG TAB PO SCH (08:28)
[2022-04-05] MEDS: Amantadine HCl 100 mg Capsule PO SCH (08:29)
[2022-04-05] MEDS: Fluticasone Propionate Nasal Spray 16 gm Bottle NASAL SCH (08:30)
[2022-04-05] MEDS: Cepastat Lozenges 1 LOZ PO PRN ×3 (08:34→20:28)
[2022-04-05] MEDS: Benzonatate 100 MG CAP PO PRN ×2 (10:49→17:47)
[2022-04-05] MEDS: Loratadine 10 MG TAB PO PRN (17:47)
[2022-04-05] MEDS: Guaifenesin DM 100-10/5 ML UDCUP PO PRN (20:29)
[2022-04-06] MEDS: Carbidopa/Levodopa 10-100 mg Tablet PO SCH (06:03)
[2022-04-06] MEDS: Benzonatate 100 MG CAP PO PRN (06:03)
[2022-04-06] MEDS: Gabapentin 300 MG CAP PO SCH ×2 (08:17→19:58)
[2022-04-06] MEDS: Lisinopril 5 MG TAB PO SCH (08:18)
[2022-04-06] MEDS: Artificial Tear Sol 15 ML BOT EA EYE PRN (08:19)
[2022-04-06] MEDS: Amantadine HCl 100 mg Capsule PO SCH (08:19)
[2022-04-06] MEDS: Fluticasone Propionate Nasal Spray 16 gm Bottle NASAL SCH (08:19)
[2022-04-06] MEDS: Loratadine 10 MG TAB PO PRN (08:28)
[2022-04-06] MEDS: Methocarbamol 500 MG TAB PO PRN (16:46)
[2022-04-06] MEDS: Guaifenesin DM 100-10/5 ML UDCUP PO PRN (17:22)
[2022-04-07] MEDS: Acetaminophen 325 MG TAB PO PRN (00:44)
[2022-04-07] MEDS: Calcium Carbonate 500 MG ChewTAB PO PRN (00:44)
[2022-04-07] MEDS: Carbidopa/Levodopa 10-100 mg Tablet PO SCH (05:30)
[2022-04-07] MEDS: Fluticasone Propionate Nasal Spray 16 gm Bottle NASAL SCH (08:10)
[2022-04-07] MEDS: Gabapentin 300 MG CAP PO SCH ×2 (08:11→20:39)
[2022-04-07] MEDS: Amantadine HCl 100 mg Capsule PO SCH (08:11)
[2022-04-07] MEDS: Loratadine 10 MG TAB PO PRN (08:14)
[2022-04-07] MEDS: Lisinopril 5 MG TAB PO SCH (08:14)
[2022-04-07] MEDS: Methocarbamol 500 MG TAB PO PRN (16:12)
[2022-04-07] MEDS: Cepastat Lozenges 1 LOZ PO PRN (20:43)
[2022-04-07] MEDS: Guaifenesin DM 100-10/5 ML UDCUP PO PRN (20:43)
[2022-04-08] MEDS: Carbidopa/Levodopa 10-100 mg Tablet PO SCH (05:24)
[2022-04-08] MEDS: Lisinopril 5 MG TAB PO SCH (09:11)
[2022-04-08] MEDS: Amantadine HCl 100 mg Capsule PO SCH (09:12)
[2022-04-08] MEDS: Fluticasone Propionate Nasal Spray 16 gm Bottle NASAL SCH (09:12)
[2022-04-08] MEDS: Gabapentin 300 MG CAP PO SCH ×2 (09:12→20:39)
[2022-04-08] MEDS: Acetaminophen 325 MG TAB PO PRN (17:26)
[2022-04-08] MEDS: Guaifenesin DM 100-10/5 ML UDCUP PO PRN (17:26)
[2022-04-09] MEDS: Loratadine 10 MG TAB PO PRN (02:40)
[2022-04-09] MEDS: Carbidopa/Levodopa 10-100 mg Tablet PO SCH (06:41)
[2022-04-09 07:53] VITALS: TEMP 98
[2022-04-09] MEDS: Fluticasone Propionate Nasal Spray 16 gm Bottle NASAL SCH (07:54)
[2022-04-09] MEDS: Artificial Tear Sol 15 ML BOT EA EYE PRN (07:55)
[2022-04-09] MEDS: Gabapentin 300 MG CAP PO SCH (07:55)
[2022-04-09] MEDS: Amantadine HCl 100 mg Capsule PO SCH (07:57)
[2022-04-09] MEDS: Lisinopril 5 MG TAB PO SCH (07:57)
[2022-04-09] MEDS: Benzonatate 100 MG CAP PO PRN (07:58)
[2022-04-09] MEDS: Methocarbamol 500 MG TAB PO PRN (11:57)
[2022-04-09 13:31] VITALS: BP 115/76
== END 2022-04-09 19:15 | disposition home or self-care (01) | DRG 948 ==
LOC: NAV ACUTE 15:51
PROVIDERS: ADMIT Family Medicine; ATTEND Family Medicine
DX: R53.81 Other malaise (principal); M62.82 Rhabdomyolysis; I50.32 Chronic diastolic (congestive) heart failure; G20 Parkinson's disease; R53.1 Weakness; I11.0 Hypertensive heart disease with heart failure; G89.29 Other chronic pain; M54.9 Dorsalgia, unspecified; Z20.822 Contact with and (suspected) exposure to COVID-19; Z79.899 Other long term (current) drug therapy; Z90.49 Acquired absence of other specified parts of digestive tract; Z98.890 Other specified postprocedural states; Z98.51 Tubal ligation status; Z88.5 Allergy status to narcotic agent; Z91.14 Patient's other noncompliance with medication regimen
CPT/HCPCS: 36415; 71045; 80048; 80053; 82550; 85025; 87811; J1650

== ENCOUNTER 2022-09-13 12:38 | Emergency (ER) | payer MEDICARE, MEDICAID | END 2022-09-13 14:55 | disposition home or self-care (01) | LOC: NAV ERS 12:38 | DX: J30.9 Allergic rhinitis, unspecified (principal); G44.209 Tension-type headache, unspecified, not intractable; K21.9 Gastro-esophageal reflux disease without esophagitis; I10 Essential (primary) hypertension; Z79.899 Other long term (current) drug therapy | CPT/HCPCS: 99284 ==

== ENCOUNTER 2022-09-28 16:23 | Emergency (ER) | payer MEDICARE, MEDICAID ==
[2022-09-28 17:19] LABS: #Eosinphils 0.1 thou/uL (0.0-0.7); #Lymphocytes 1.2 thou/uL (1.20-3.40); #Monocytes 0.3 thou/uL (0.11-0.59); #Neutrophils 3.3 thou/uL (1.40-6.50); %Basophils 0.8 % (0.0-1.0); %Eosinophils 1.2 % (0.0-10.0); %Lymphocytes 25.2 % (21.0-51.0); %Monocytes 5.9 % (0.0-10.0); %Neutrophils 66.8 % (42.0-75.0); Hemoglobin 11.2 g/dL (12.0-16.0); Mean Corpuscular HGB CONC 30.7 g/dL (32.0-36.0); Mean Corpuscular Hemoglobin 27.5 pg (27.0-31.0); Mean Corpuscular Volume 89.6 fl (78.0-98.0); Mean Platelet Volume 6.9 fL (7.4-10.4); Platelet Count 211 10x3/uL (130-400); RBC Distribution Width 12.4 % (11.5-14.5); Red Blood Cell (RBC) Count 4.06 mill/uL (4.20-5.40); White Blood Cell (WBC) Count 4.9 10x3/uL (4.8-10.8)
[2022-09-28 17:36] LABS: ALT (SGPT) 15 U/L (8-55); AST (SGOT) 16 U/L (5-34); Alkaline Phosphatase 57 U/L (40-110); Anion Gap 11 mmol/L (10-20); BUN (Urea Nitrogen) 11 mg/dL (9.8-20.1); Bilirubin, Total 0.7 mg/dL (0.2-1.2); Calc. Creatinine Clearance 0 mL/min (70-130); Calcium 9.5 mg/dL (7.8-10.44); Carbon Dioxide 24 mmol/L (23-31); Chloride 109 mmol/L (98-107); Estimated GFR 74; Globulin 2.7 g/dL (2.4-3.5); Glucose 96 mg/dL (80-115); Protein, Total 6.7 g/dL (5.8-8.1); Sodium 141 mmol/L (136-145)
[2022-09-28] MEDS ORDERED: Potassium Chloride 20 MEQ TAB ONE (17:50)
[2022-09-28] MEDS ORDERED: Aspirin Chewable 81 MG TAB ONE (19:36)
== END 2022-09-28 20:47 | disposition short-term general hospital (02) ==
LOC: NAV ERS 16:23
DX: I45.10 Unspecified right bundle-branch block (principal); E87.6 Hypokalemia; D64.9 Anemia, unspecified; K21.9 Gastro-esophageal reflux disease without esophagitis; I10 Essential (primary) hypertension; Z79.899 Other long term (current) drug therapy
CPT/HCPCS: 71045; 80053; 83735; 84484; 85025; 93005

== ENCOUNTER 2023-02-01 12:13 | Emergency (ER) | payer MEDICARE, MEDICAID ==
[2023-02-01] MEDS ORDERED: Acetaminophen 500 MG TAB ONE (14:05)
== END 2023-02-01 14:20 | disposition home or self-care (01) ==
LOC: NAV ERS 12:13
DX: S39.012A Strain of muscle, fascia and tendon of lower back, initial encounter (principal); S16.1XXA Strain of muscle, fascia and tendon at neck level, initial encounter; K21.9 Gastro-esophageal reflux disease without esophagitis; I10 Essential (primary) hypertension; Z79.899 Other long term (current) drug therapy; W18.30XA Fall on same level, unspecified, initial encounter
CPT/HCPCS: 70450; 72100; 72125

== ENCOUNTER 2023-04-29 19:59 | Emergency (ER) | payer MEDICARE, MEDICAID | END 2023-04-29 21:41 | disposition home or self-care (01) | LOC: NAV ERS 19:59 | DX: R53.1 Weakness (principal); I10 Essential (primary) hypertension | CPT/HCPCS: 99284 ==

== ENCOUNTER 2023-05-09 13:28 | Emergency (ER) | payer MEDICARE, MEDICAID ==
[2023-05-09] MEDS ORDERED: Lisinopril 5 MG TAB ONE ×2 (14:52)
[2023-05-09] MEDS ORDERED: Sodium Chloride 0.9% 1,000 ML ONE (15:45)
[2023-05-09] MEDS ORDERED: Methocarbamol 500 MG TAB ONE (16:08)
[2023-05-09 16:56] LABS: Bilirubin Negative (Negative); Blood, Urine Moderate (Negative); CAUTI Indications for Culture Dysuria,urgency,freq; Clarity Clear (Clear); Glucose, Urine (Dipstick) Negative (Negative); Ketone, Urine Trace mg/dL (Negative); Leukocyte Trace (Negative); Mucous/LPF 1+ LPF (<2+); Nitrite Negative (Negative); Protein, Urine (Dipstick) Negative (Neg-Trace); Squamous Epithelial 0-3 HPF (0-3); Urobilinogen 0.2 mg/dL (Less than 2); WBC/HPF 0-3 HPF (0-3); pH, Urine 6.5 (5.0-9.0)
[2023-05-09 16:57] LABS: Urine Culture Reflex No No
[2023-05-09 17:45] LABS: #Eosinphils 0.1 thou/uL (0.0-0.7); #Lymphocytes 1.2 thou/uL (1.20-3.40); #Monocytes 0.3 thou/uL (0.11-0.59); #Neutrophils 3.2 thou/uL (1.40-6.50); %Basophils 0.4 % (0.0-1.0); %Eosinophils 1.3 % (0.0-10.0); %Lymphocytes 24.7 % (21.0-51.0); %Monocytes 6.6 % (0.0-10.0); Hematocrit 38.5 % (36.0-47.0); Hemoglobin 12.4 g/dL (12.0-16.0); Mean Corpuscular HGB CONC 32.2 g/dL (32.0-36.0); Mean Corpuscular Hemoglobin 28.5 pg (27.0-31.0); Mean Corpuscular Volume 88.6 fl (78.0-98.0); Mean Platelet Volume 8.3 fL (7.4-10.4); Platelet Count 213 10x3/uL (130-400); RBC Distribution Width 12.6 % (11.5-14.5); Red Blood Cell (RBC) Count 4.34 mill/uL (4.20-5.40); White Blood Cell (WBC) Count 4.8 10x3/uL (4.8-10.8)
[2023-05-09 18:06] LABS: ALT (SGPT) 13 U/L (8-55); AST (SGOT) 13 U/L (5-34); Albumin 4.1 g/dL (3.4-4.8); Alkaline Phosphatase 71 U/L (40-110); Anion Gap 14 mmol/L (10-20); BUN (Urea Nitrogen) 10 mg/dL (9.8-20.1); Bilirubin, Total 0.9 mg/dL (0.2-1.2); Calc. Creatinine Clearance 0 mL/min (70-130); Calcium 8.8 mg/dL (7.8-10.44); Carbon Dioxide 20 mmol/L (23-31); Chloride 109 mmol/L (98-107); Estimated GFR 90; Globulin 2.6 g/dL (2.4-3.5); Glucose 102 mg/dL (80-115); Potassium 3.6 mmol/L (3.5-5.1); Protein, Total 6.7 g/dL (5.8-8.1); Sodium 139 mmol/L (136-145)
[2023-05-09 18:08] LABS: Troponin I Less than 0.010 ng/mL (< 0.028)
== END 2023-05-09 19:06 | disposition short-term general hospital (02) ==
LOC: NAV ERS 13:28
DX: M79.89 Other specified soft tissue disorders (principal); H91.90 Unspecified hearing loss, unspecified ear; R53.1 Weakness; R26.2 Difficulty in walking, not elsewhere classified; I10 Essential (primary) hypertension; K21.9 Gastro-esophageal reflux disease without esophagitis; Z79.899 Other long term (current) drug therapy
CPT/HCPCS: 71045; 80053; 81001; 83880; 84484; 85025; 85379; 93005; J7050

== ENCOUNTER 2023-05-29 09:50 | Emergency (ER) | payer MEDICARE, MEDICAID | END 2023-05-29 13:02 | disposition home or self-care (01) | LOC: NAV ERS 09:50 | DX: S70.01XA Contusion of right hip, initial encounter (principal); S90.02XA Contusion of left ankle, initial encounter; I10 Essential (primary) hypertension; W18.30XA Fall on same level, unspecified, initial encounter; Z79.899 Other long term (current) drug therapy ==

== ENCOUNTER 2023-07-16 18:04 | Emergency (ER) | payer MEDICARE, MEDICAID ==
[2023-07-16] MEDS ORDERED: Lactated Ringer's 0 ML ONE (18:31)
[2023-07-16 19:43] LABS: Hematocrit 42.6 % (36.0-47.0); Hemoglobin 12.7 g/dL (12.0-16.0); Red Blood Cell (RBC) Count 4.84 mill/uL (4.20-5.40); White Blood Cell (WBC) Count 5.3 10x3/uL (4.8-10.8)
[2023-07-16 19:51] LABS: Band 2 % (5-11); Eosinophils 2 % (0-10); Lymphocytes 38 % (21-51); MDiff Complete? YES; Mean Corpuscular HGB CONC 29.7 g/dL (32.0-36.0); Mean Corpuscular Hemoglobin 26.2 pg (27.0-31.0); Monocytes 1 % (0-10); Neutrophil 56 % (42-75); Platelet Adequacy Comment PLT clumps seen-ADEQ; RBC Distribution Width 12.7 % (11.5-14.5)
[2023-07-16 19:53] LABS: ALT (SGPT) 22 U/L (8-55); AST (SGOT) 20 U/L (5-34); Albumin 4.2 g/dL (3.4-4.8); Alkaline Phosphatase 83 U/L (40-110); Anion Gap 18 mmol/L (10-20); BUN (Urea Nitrogen) 18 mg/dL (9.8-20.1); Bilirubin, Total 0.9 mg/dL (0.2-1.2); Calc. Creatinine Clearance 0 mL/min (70-130); Calcium 9.8 mg/dL (7.8-10.44); Carbon Dioxide 21 mmol/L (23-31); Chloride 107 mmol/L (98-107); Estimated GFR 77; Glucose 80 mg/dL (80-115); Potassium 3.4 mmol/L (3.5-5.1); Protein, Total 7.2 g/dL (5.8-8.1); Sodium 143 mmol/L (136-145)
== END 2023-07-16 21:54 | disposition home or self-care (01) ==
LOC: NAV ERS 18:04
DX: G89.29 Other chronic pain (principal); M79.605 Pain in left leg; K21.9 Gastro-esophageal reflux disease without esophagitis; I10 Essential (primary) hypertension; Z79.899 Other long term (current) drug therapy
CPT/HCPCS: 80053; 85025; 99283; J7120

== ENCOUNTER 2023-08-20 16:43 | Emergency (ER) | payer MEDICARE, MEDICAID, OTHER | END 2023-08-20 19:27 | disposition home or self-care (01) | LOC: NAV ERS 16:43 | DX: M25.551 Pain in right hip (principal); K21.9 Gastro-esophageal reflux disease without esophagitis; I10 Essential (primary) hypertension; Z79.899 Other long term (current) drug therapy | CPT/HCPCS: 99283 ==

== ENCOUNTER 2023-10-09 03:36 | Emergency (ER) | payer MEDICARE, OTHER ==
[2023-10-09 04:03] LABS: #Eosinphils 0.1 thou/uL (0.0-0.7); #Lymphocytes 1.2 thou/uL (1.20-3.40); #Monocytes 0.3 thou/uL (0.11-0.59); #Neutrophils 3.9 thou/uL (1.40-6.50); %Basophils 0.8 % (0.0-1.0); %Eosinophils 2.1 % (0.0-10.0); %Monocytes 5.7 % (0.0-10.0); %Neutrophils 69.5 % (42.0-75.0); Hematocrit 39.3 % (36.0-47.0); Hemoglobin 12.4 g/dL (12.0-16.0); Mean Corpuscular HGB CONC 31.7 g/dL (32.0-36.0); Mean Corpuscular Hemoglobin 27.8 pg (27.0-31.0); Mean Corpuscular Volume 87.8 fl (78.0-98.0); Mean Platelet Volume 7.5 fL (7.4-10.4); Platelet Count 196 10x3/uL (130-400); RBC Distribution Width 12.5 % (11.5-14.5); Red Blood Cell (RBC) Count 4.47 mill/uL (4.20-5.40); White Blood Cell (WBC) Count 5.6 10x3/uL (4.8-10.8)
[2023-10-09 04:17] LABS: Acetaminophen Less than 10 mcg/mL (10.0-30.0); Alcohol Less than 10.0 mg/dL (Less than 10); Salicylate Less than 8.0 mg/dL (15.0-30.0)
[2023-10-09 04:17] LABS: Bilirubin Negative (Negative); Blood, Urine Trace (Negative); Clarity Clear (Clear); Glucose, Urine (Dipstick) Negative (Negative); Ketone, Urine Negative (Negative); Leukocyte Negative (Negative); Nitrite Negative (Negative); Protein, Urine (Dipstick) Negative (Neg-Trace); Specific Gravity, Urine 1.025 (1.005-1.030); Urobilinogen 0.2 mg/dL (Less than 2)
[2023-10-09 04:18] LABS: Troponin I Less than 0.010 ng/mL (< 0.028)
[2023-10-09 04:20] LABS: Bacteria/HPF 2+ HPF (None Seen); CAUTI Indications for Culture Alt mental st,lethar; Squamous Epithelial None Seen HPF (0-3); Urine Culture Reflex No No
[2023-10-09 04:20] LABS: ALT (SGPT) 19 U/L (8-55); AST (SGOT) 25 U/L (5-34); Albumin 4.2 g/dL (3.4-4.8); Alkaline Phosphatase 84 U/L (40-110); Anion Gap 17 mmol/L (10-20); BUN (Urea Nitrogen) 16 mg/dL (9.8-20.1); Calc. Creatinine Clearance 0 mL/min (70-130); Calcium 9.7 mg/dL (7.8-10.44); Carbon Dioxide 22 mmol/L (23-31); Chloride 105 mmol/L (98-107); Estimated GFR 77; Globulin 3.5 g/dL (2.4-3.5); Glucose 82 mg/dL (80-115); Potassium 4.2 mmol/L (3.5-5.1); Protein, Total 7.7 g/dL (5.8-8.1); Sodium 140 mmol/L (136-145)
[2023-10-09 04:25] LABS: Amphetamine Not Detected (NotDetected); Barbiturates Screen Not Detected (NotDetected); Benzodiazepine Screen Not Detected (NotDetected); Cocaine Metabolite Screen Not Detected (NotDetected); Methadone Not Detected (NotDetected); Methamphetamine Not Detected (NotDetected); Opiate Screen Not Detected (NotDetected); Oxycodone Screen Not Detected (NotDetected); Phencyclidine (PCP) Not Detected (NotDetected); THC/Cannabinoid Screen Not Detected (NotDetected); Tricyclic Screen Not Detected (NotDetected)
[2023-10-09] MEDS ORDERED: cefTRIAXone (ROCEPHIN) 1 GM VIAL ONE (04:50)
== END 2023-10-09 06:26 | disposition short-term general hospital (02) ==
LOC: NAV ERS 03:36
DX: R44.3 Hallucinations, unspecified (principal); N39.0 Urinary tract infection, site not specified; I10 Essential (primary) hypertension; K21.9 Gastro-esophageal reflux disease without esophagitis; Z79.899 Other long term (current) drug therapy
CPT/HCPCS: 51701; 70450; 71045; 80053; 80306; 80307; 81001; 82140; 82962; 84484; 85025; 87077; 87086; 93005; 96374; 99285; J0696; 36416; 87186

== ENCOUNTER 2023-12-22 23:07 | Emergency (ER) | payer MEDICARE, MEDICAID ==
[2023-12-23 00:39] LABS: Bilirubin Negative (Negative); Blood, Urine Small (Negative); Clarity Clear (Clear); Glucose, Urine (Dipstick) Negative (Negative); Ketone, Urine Negative (Negative); Leukocyte Negative (Negative); Nitrite Negative (Negative); Protein, Urine (Dipstick) Negative (Neg-Trace); Urobilinogen 0.2 mg/dL (Less than 2)
[2023-12-23 00:41] LABS: Bacteria/HPF Rare-Few HPF (None Seen); CAUTI Indications for Culture Alt mental st,lethar; Squamous Epithelial 0-3 HPF (0-3); WBC/HPF 0-3 HPF (0-3)
[2023-12-23 00:42] LABS: Urine Culture Reflex No No
== END 2023-12-23 01:30 | disposition home or self-care (01) ==
LOC: NAV ERS 23:07
DX: R26.9 Unspecified abnormalities of gait and mobility (principal); G20.A1 Parkinson's disease without dyskinesia, without mention of fluctuations; Z55.6 Problems related to health literacy; I10 Essential (primary) hypertension
CPT/HCPCS: 81001; 99285

== ENCOUNTER 2024-02-20 07:51 | Emergency (ER) | payer MEDICARE, MEDICAID ==
[2024-02-20 09:04] LABS: #Lymphocytes 0.4 thou/uL (1.20-3.40); #Monocytes 0.7 thou/uL (0.11-0.59); #Neutrophils 12.4 thou/uL (1.40-6.50); %Basophils 0.2 % (0.0-1.0); %Monocytes 5.4 % (0.0-10.0); %Neutrophils 91.4 % (42.0-75.0); Hematocrit 49.8 % (36.0-47.0); Hemoglobin 15.2 g/dL (12.0-16.0); Mean Corpuscular HGB CONC 30.5 g/dL (32.0-36.0); Mean Corpuscular Hemoglobin 27.2 pg (27.0-31.0); Mean Corpuscular Volume 89.1 fl (78.0-98.0); Mean Platelet Volume 7.9 fL (7.4-10.4); Platelet Count 210 10x3/uL (130-400); RBC Distribution Width 12.7 % (11.5-14.5); White Blood Cell (WBC) Count 13.6 10x3/uL (4.8-10.8)
[2024-02-20 09:20] LABS: ALT (SGPT) 156 U/L (8-55); AST (SGOT) 512 U/L (5-34); Albumin 4.1 g/dL (3.4-4.8); Alkaline Phosphatase 70 U/L (40-110); Anion Gap 23 mmol/L (10-20); BUN (Urea Nitrogen) 21 mg/dL (9.8-20.1); Calc. Creatinine Clearance 0 mL/min (70-130); Calcium 9.8 mg/dL (7.8-10.44); Carbon Dioxide 17 mmol/L (23-31); Chloride 102 mmol/L (98-107); Estimated GFR 66; Globulin 4.3 g/dL (2.4-3.5); Glucose 141 mg/dL (80-115); Potassium 4.3 mmol/L (3.5-5.1); Protein, Total 8.4 g/dL (5.8-8.1); Sodium 138 mmol/L (136-145)
[2024-02-20] MEDS ORDERED: Acetaminophen 500 MG TAB ONE (09:54)
[2024-02-20 10:20] LABS: Troponin I 0.054 ng/mL (< 0.028)
[2024-02-20] MEDS ORDERED: Aspirin Chewable 81 MG TAB ONE (10:50)
[2024-02-20 11:48] LABS: Bilirubin Moderate (Negative); Blood, Urine Large (Negative); Glucose, Urine (Dipstick) 100 mg/dL (Negative); Ketone, Urine Trace mg/dL (Negative); Leukocyte Negative (Negative); Nitrite Negative (Negative); Protein, Urine (Dipstick) > or equal to 300 mg/dL (Neg-Trace); Specific Gravity, Urine 1.025 (1.005-1.030); pH, Urine 5.5 (5.0-9.0)
[2024-02-20 11:51] LABS: CAUTI Indications for Culture Dysuria,urgency,freq; Clarity Slightly Cloudy (Clear); Squamous Epithelial 0-3 HPF (0-3)
[2024-02-20 11:52] LABS: Bacteria/HPF 3+ HPF (None Seen)
[2024-02-20 11:54] LABS: Urine Culture Reflex No No
[2024-02-20] MEDS ORDERED: Sodium Chloride 0.9% 1,000 ML ONE (12:53)
[2024-02-20] MEDS ORDERED: Cephalexin 250 MG CAP ONE (12:53)
[2024-02-20 15:31] LABS: Anion Gap 17 mmol/L (10-20); BUN (Urea Nitrogen) 22 mg/dL (9.8-20.1); Calc. Creatinine Clearance 0 mL/min (70-130); Calcium 8.6 mg/dL (7.8-10.44); Carbon Dioxide 19 mmol/L (23-31); Chloride 105 mmol/L (98-107); Estimated GFR 76; Glucose 112 mg/dL (80-115); Potassium 4.2 mmol/L (3.5-5.1); Sodium 137 mmol/L (136-145)
[2024-02-20 15:57] LABS: Troponin I 0.043 ng/mL (< 0.028)
== END 2024-02-20 17:19 | disposition short-term general hospital (02) ==
LOC: NAV ERS 07:51
DX: I51.3 Intracardiac thrombosis, not elsewhere classified (principal); L03.116 Cellulitis of left lower limb; S40.212A Abrasion of left shoulder, initial encounter; M62.82 Rhabdomyolysis; R74.02 Elevation of levels of lactic acid dehydrogenase [LDH]; R74.01 Elevation of levels of liver transaminase levels; K21.9 Gastro-esophageal reflux disease without esophagitis; I10 Essential (primary) hypertension; Z86.73 Personal history of transient ischemic attack (TIA), and cerebral infarction without residual deficits; Z79.899 Other long term (current) drug therapy; X58.XXXA Exposure to other specified factors, initial encounter
CPT/HCPCS: 51701; 72125; 73030; 80048; 80053; 81001; 82550; 84484 ×2; 85025; 93005; 96360; 96361; 99285; J7030; 36415